=== PATIENT | male | born 1960 | race American Indian/Alaskan Native ===

== ENCOUNTER 2016-04-02 13:35 | Inpatient (IN) | payer BC ==
[2016-04-02] MEDS ORDERED: MILK OF MAGNESIA PO PRN (15:45)
[2016-04-02] MEDS ORDERED: TYLENOL PO PRN (15:45)
[2016-04-02] MEDS ORDERED: SENOKOT PO PRN (15:45)
[2016-04-02] MEDS ORDERED: ALUM-MAG HYDROX-SIMETH 200-200-20MG/5ML PO PRN (15:45)
[2016-04-02] MEDS ORDERED: D50W (25GM) IV PRN (16:15)
--- NOTE | 2016-04-02 17:20 | History and Physical Report ---
History of Present Illness Date: 04/02/16 Referring Facility: [facility] Date of admission: 04/02/16 13:35 Chief Complaint: Left posterior basal ganglia CVA History of present illness: POST ADMISSION PHYSICIAN EVALUATION ONSET DATE: 03/30/2016 IMPAIRMENT GROUP CODE: 01.2 ETIOLOGIC DIAGNOSIS: Left posterior basal ganglia CVA STATUS CHANGES SINCE PREADMISSION SCREENING: PAS has been reviewed. No acute changes noted in comparison to PAS; pt continues with right sided weakness and dysarthria. Pt remains an appropriate candidate for IPR course at this time. PREVIOUS FUNCTIONAL STATUS: Independent with ADLs, gait, transfers CURRENT FUNCTIONAL STATUS: Per PAS, S/U to modA for ADLs; min/CGA for bed mobility, transfers, gait up to 50 feet with HW; therapy evaluations will be initiated in the AM HPI 55 y.o. male who presented with acute onset of right sided weakness noted when attempting to get out of bed. CVA work-up revealed acute ischemia at left posterior basal ganglia. Pt continued with right sided weakness, dysarthria and facial droop; noted to have functional decline in self cares and mobility when evaluated by PT/OT. Pt is now admitted for aggressive therapies and ongoing medical management. Past History Past Medical History: diabetes, hypertension Past Surgical History: Other (right rotator cuff repair) Social history: Lives alone. denies: smoking, alcohol abuse Family history: diabetes, hypertension, stroke Medications and Allergies Allergies Allergy/AdvReac Type Severity Reaction Status Date / Time No Known Allergies Allergy Unverified 03/30/16 21:36 Home Medications Medication Instructions Recorded Confirmed Last Taken Type amLODIPine [Norvasc] 10 mg PO DAILY 03/31/16 03/31/16 Unknown History Aspirin [Aspirin TAB] 325 mg PO QDAY #30 tablet 04/02/16 Unknown Rx Insulin NPH/Regular [NovoLIN 70/30] 12 unit SQ BIDDIAB 30 Days 04/02/16 Unknown Rx Simvastatin [Zocor TAB] 40 mg PO QHS #30 tablet 04/02/16 Unknown Rx glipiZIDE [Glucotrol] 10 mg PO QDDIAB #30 tablet 04/02/16 Unknown Rx Active Meds: Active Medications Acetaminophen (Tylenol) 650 mg PO Q4H PRN PRN Reason: Pain MILD(1-3)/Fever >100.5/LÓPEZ Al Hydrox/Mg Hydrox/Simethicone (Alum-Mag Hydrox-Simeth [id number]/5ml) 30 ml PO Q4H PRN PRN Reason: Indigestion Amlodipine Besylate (Norvasc) 10 mg PO DAILY [facility] Aspirin (Aspirin) 325 mg PO QDAY DUY Dextrose (D50w (25gm)) 50 ml IV PRN PRN PRN Reason: Hypoglycemia Enoxaparin Sodium (Lovenox) 40 mg SUB-Q QDAY DUY Glipizide (Glucotrol) 10 mg PO QDDIAB [facility] Insulin Aspart (Novolog) 0 units SUB-Q ACHS DUY PRN Reason: Protocol Magnesium Hydroxide (Milk Of Magnesia) 30 ml PO Q4H PRN PRN Reason: Constipation Senna (Senokot) 8.6 mg PO Q12H PRN PRN Reason: Laxative Effect Simvastatin (Zocor) 20 mg PO QHS DUY Review of Systems All systems: negative Ears, nose, mouth and throat: no dysphagia, no headache Cardiovascular: no chest pain, no lightheadedness Respiratory: no cough, no shortness of breath Gastrointestinal: no nausea, no vomiting, no constipation Genitourinary Male: no dysuria Musculoskeletal: gait dysfunction Neurological: weakness (right extremities), other (dysarthria) Exam - Constitutional Vitals: Vital Signs - 12hr 04/02/16 04/02/16 14:55 15:45 Temperature 96.6 F L Pulse Rate [ 97 H Left Brachial] Pulse Rate [ 97 H Left Radial] Respiratory 20 Rate Blood Pressure 135/75 [Left Arm] O2 Sat by Pulse 96 Oximetry General appearance: no acute distress, other (sitting up on edge of bed eating dinner; no coughing noted; children present) - EENT Eyes: EOM intact ENT: hearing intact - Neck Neck: supple, normal ROM - Respiratory Respiratory effort: normal Respiratory: bilateral: CTA - Cardiovascular Rhythm: regular Heart Sounds: Present: S1 & S2 - Extremities Extremities: No edema - Gastrointestinal General gastrointestinal: Present: soft, non-tender, non-distended, normal bowel sounds - Integumentary Integumentary: Present: clear - Musculoskeletal Musculoskeletal: right sided weakness - Neurologic Neurologic: other (+facial droop; +dysarthria; sensation grossly intact) - Psychiatric Psychiatric: appropriate mood/affect, intact judgment & insight, memory intact, cooperative - Labs Labs: Laboratory Results - last 72 hr 04/02/16 16:41 POC Glucose 175 H Assessment and Plan Assessment and plan: 55 y.o. male s/p left posterior basal ganglia infarct, gait dysfunction and dysarthria. The patient is medically stable, however, requires ongoing medical management. Pt is appropriate for inpatient rehabilitation admission and is thought to be able to tolerate at least 3 hours of therapy a day, 5 days a week including 1 hour of physical therapy, 1 hour of occupational therapy, and 1 hour of speech therapy. Patient is able to understand and follow basic directions and has attainable rehab goals. Potential barriers/complications include extension/recurrent CVA, falls, seizure, DVT, PE, depression, parasthesias, aspiration, syncope, hypoglycemia, uncontrolled DM/HTN. Plan 1. Rehabilitation- Pt will undergo multidisciplinary/integrative rehab PT/OT/ IT RECRUITER, Nursing. Areas to be addressed include, but are not limited to PT for mobility, strengthening, transfer training, ROM, endurance, stairs, balance; OT for ADLs, household tasks, adaptive equipment; IT RECRUITER for dysarthria; Nursing for carryover of therapies, pain control, CVA education, skin integrity, medication management, bowel/bladder management; Nutrition as needed; automotive services manager for discharge planning and equipment needs. Potential interventions include appropriate assistive device or adaptive equipment. Expected overall level of functional improvement by discharge is Jason for ADLs, gait, transfers. Pt will tentatively be discharged home with outpatient PT/OT/IT RECRUITER. Estimated length of stay is 10-14 days. 2. s/p CVA- continue ASA, statin; PT/OT/IT RECRUITER to address gait dysfunction, decreased balance, dysarthria, decline in functional independence 3. DM- resume glipizide, SSI, ADA diet; follow blood sugars closely; HgA1c 11.8 on admission 4. HTN- continue Norvasc; follow and add additional agent if needed 5. DVT px- lovenox - Patient Problems (1) Left-sided cerebrovascular accident (CVA) Current Visit: Yes Status: Acute (2) Dysarthria due to cerebrovascular accident (CVA) Current Visit: Yes Status: Acute (3) Hemiparesis affecting right side as late effect of cerebrovascular accident Current Visit: Yes Status: Acute (4) Diabetes Current Visit: Yes Status: Chronic Qualifiers: Diabetes mellitus type: type 2 Diabetes mellitus complication status: with hyperglycemia Diabetes mellitus jail insulin use: without jail use Qualified Code(s): E11.65 - Type 2 diabetes mellitus with hyperglycemia (5) HTN (hypertension) Current Visit: Yes Status: Chronic Qualifiers: Hypertension type: essential hypertension Qualified Code(s): I10 - Essential (primary) hypertension
[2016-04-02] MEDS: NOVOLOG SUB-Q SCH ×2 (17:26→22:52)
[2016-04-02] MEDS ORDERED: ZOCOR PO SCH (21:00)
[2016-04-02] MEDS: ZOCOR PO SCH (22:52)
[2016-04-03] MEDS: GLUCOTROL PO SCH (08:00)
[2016-04-03] MEDS ORDERED: GLUCOTROL PO SCH (08:00)
[2016-04-03] MEDS: LOVENOX SUB-Q SCH (08:00)
[2016-04-03] MEDS: NOVOLOG SUB-Q SCH ×4 (08:40→22:30)
[2016-04-03] MEDS: NORVASC PO SCH (10:00)
--- NOTE | 2016-04-03 14:28 | Progress Note ---
Assessment and Plan 55 y.o. male s/p left posterior basal ganglia infarct, gait dysfunction and dysarthria - s/p CVA- ASA, statin - gait dysfunction secondary to CVA- continue to address with PT and OT - dysarthria secondary to CVA- continue GASTROENTEROLOGY TECHNICIAN - DM- restarted on glipizide, SSI, ADA diet; continue to follow blood sugars closely; will likely need to restart 70/30 if remains elevated - HTN- Norvasc - DVT px- lovenox - Patient Problems (1) Left-sided cerebrovascular accident (CVA) Current Visit: Yes Status: Acute (2) Hemiparesis affecting right side as late effect of cerebrovascular accident Current Visit: Yes Status: Acute (3) Dysarthria due to cerebrovascular accident (CVA) Current Visit: Yes Status: Acute (4) HTN (hypertension) Current Visit: Yes Status: Chronic Qualifiers: Hypertension type: essential hypertension Qualified Code(s): I10 - Essential (primary) hypertension (5) Diabetes Current Visit: Yes Status: Chronic Qualifiers: Diabetes mellitus type: type 2 Diabetes mellitus complication status: with hyperglycemia Diabetes mellitus complication detail: D Diabetic retinopathy severity: D Proliferative retinopathy type: P Diabetes mellitus macular edema: D Diabetes mellitus meterman insulin use: without alf use Laterality: L Chronic kidney disease stage: C Qualified Code(s): E11.65 - Type 2 diabetes mellitus with hyperglycemia (6) Abnormality of gait following cerebrovascular accident (CVA) Current Visit: Yes Status: Acute Subjective Date of service: 04/03/16 Principal diagnosis: left posterior basal ganglia infarct Interval history: Pt seen in room this AM, F/U IPR course, s/p left posterior basal ganglia infarct. Pt is without any complaints on today; able to participate well with therapy evaluations Objective - Constitutional General appearance: Present: no acute distress - EENT Eyes: EOM intact ENT: hearing intact - Neck Neck: supple, normal ROM - Respiratory Respiratory effort: normal Respiratory: bilateral: CTA - Cardiovascular Rhythm: regular Heart Sounds: Present: S1 & S2 Extremities: No edema - Gastrointestinal General gastrointestinal: Present: soft, non-tender, non-distended, normal bowel sounds - Integumentary Integumentary: clear - Musculoskeletal Musculoskeletal: right sided weakness - Neurologic Neurologic: other (facial droop and dysarthria ongoing) - Psychiatric Psychiatric: appropriate mood/affect, intact judgment & insight, memory intact, cooperative - Allied health notes Allied health notes reviewed: OT (Jason to Pawan) - Labs Labs: Abnormal lab results 04/02/16 04/02/16 04/03/16 Range/Units 16:41 22:11 06:35 POC Glucose 175 H 312 H 244 H (70-105) 04/03/16 Range/Units 12:07 POC Glucose 240 H (70-105)
[2016-04-03 16:06] LABS: Basophils % (Auto) 0.6 % (0.0-1.8); Hematocrit 41.2 % (35.5-45.6); Hemoglobin 13.6 gm/dl (11.8-15.2); Mean Corpuscular HGB Conc 33 % (32-34); Mean Corpuscular Hemoglobin 29 pg (28-32); Mean Corpuscular Volume 87 fl (84-94); Platelet Count 187 K/mm3 (140-440); Red Blood Count 4.75 M/mm3 (3.65-5.03); Red Cell Distribution Width 13.3 % (13.2-15.2); White Blood Count 4.1 K/mm3 (4.5-11.0)
[2016-04-03] MEDS: ASPIRIN PO SCH (16:47)
[2016-04-03] MEDS: ZOCOR PO SCH (22:42)
[2016-04-03 23:26] LABS: Anion Gap 17 mmol/L; BUN/Creatinine Ratio 17.77; Blood Urea Nitrogen 16 mg/dL (9-20); Calcium 8.6 mg/dL (8.4-10.2); Carbon Dioxide 25 mmol/L (22-30); Chloride 100.1 mmol/L (98-107); Glucose 242 mg/dL (75-100); Potassium 3.9 mmol/L (3.6-5.0); Sodium 138 mmol/L (137-145)
[2016-04-03 23:27] LABS: Alanine Aminotransferase 26 units/L (7-56); Bilirubin,Total 0.5 mg/dL (0.1-1.2); Total Protein 6.9 g/dL (6.3-8.2)
[2016-04-03 23:28] LABS: Alkaline Phosphatase 61 units/L (35-129)
[2016-04-03 23:46] LABS: Albumin/Globulin Ratio 1.4 %
[2016-04-04] MEDS: ASPIRIN PO SCH (08:13)
[2016-04-04] MEDS: LOVENOX SUB-Q SCH (08:13)
[2016-04-04] MEDS: GLUCOTROL PO SCH (08:14)
[2016-04-04] MEDS: NORVASC PO SCH ×2 (08:14→10:00)
[2016-04-04] MEDS: NOVOLOG SUB-Q SCH ×4 (08:14→22:28)
--- NOTE | 2016-04-04 15:08 | IRU Plan of Care ---
Interdisciplinary Plan of Care - IP IRU INTERDISCIPLINARY PLAN: [facility] Inpatient Rehab Unit Plan of Care IRU Interdisciplinary Care Plan Start: 04/02/16 14: 55 Freq: Admission then PRN Status: Active Document 04/04/16 10:10 DB (Rec: 04/04/16 10:18 DB [id number]) Interdisciplinary Problem List Interdisciplinary Problem List Interdisciplinary Problem List Impaired Bathing/Grooming Query Text:Answers will Trigger Problems Impaired Dressing and Outcomes on Worklist. Impaired Mobility Impaired Transfers Impaired Toileting Impaired Expression Pain Management Knowledge Deficits Impaired Safety Medications Education Diabetes Education IRU Interdisciplinary Care Plan Therapy Services Therapy Services Will Include: Physical Therapy Query Text:Patient will be seen for a Occupational Therapy minimum of 3 hours of daily therapy 5 Speech Therapy out of 7 days a week. Therapy intensity may be adjusted within a 7 consecutive day period to effectively serve the individual needs of the patient. Treatment Frequency/Intensity/Duration Treatment Frequency 5 days per week Treatment Intensity 1 hour per discipline (PT/OT/ SIGNAL MECHANIC) daily Treatment Duration 10-14 days Problem Area: Eating/Swallowing Eating/Swallowing Outcomes Eating/Swallowing Interventions Problem Area: Bathing/Grooming Bathing/Grooming Outcomes Improve [place] w/ Bathing Bathing/Grooming Interventions ADL Training Use of Assistive Devices Therapeutic Exercise Therapeutic Activity Neuromuscular Re-Education Balance Work Activity Tolerance Work Patient/Caregiver Education Problem Area: Dressing Dressing Outcomes Improve [place] w/ UB Dressing Improve [place] w/ LB Dressing Dressing Interventions ADL Training Use of Assistive Devices Neuromuscular Re-Education Therapeutic Exercise Balance Work Patient/Caregiver Education Problem Area: Mobility Mobility Outcomes Improve [place] w/ Bed Mobility Improve [place] w/ Ambulation Improve [place] w/ Stairs /Curb Mobility Interventions Therapeutic Exercise Neuromuscular Re-Ed. Activity Tolerance Work Use of Assistive Devices Patient/Caregiver Education Gait Training Problem Area: Transfers Transfers Outcomes Improve [place] w/ Bed Transfers Improve [place] w/ Toilet Transfers Improve [place] w/ Tub/ Shower Transfers Improve [place] w/ Car Transfers Transfers Interventions Transfer Training Therapeutic Exercise Neuromuscular Re-Education Activity Tolerance Work Use of Assistive Devices Patient/Caregiver Education Problem Area: Bowel/Bladder Managment Bowel/Bladder Outcomes Bowel/Bladder Interventions Problem Area: Toileting Toileting Outcomes Improve [place] w/ Toileting Toileting Interventions ADL Training Balance Work Use of Assistive Devices Patient/Caregiver Education Problem Area: Nutrition Nutrition Outcomes Understand and Comply w/ Diet Nutrition Interventions Patient/Caregiver Education Problem Area: Comprehension Comprehension Outcomes Comprehension Interventions Problem Area: Expression Expression Outcomes Improve Intelligibility Expression Interventions Patient/Caregiver Education Problem Area: Problem Solving Problem Solving Outcomes Problem Solving Interventions Problem Area: Memory Memory Outcomes Use Memory Aids Memory Interventions Cognitive Training Patient/Caregiver Education Problem Area: Pain Management Pain Management Outcomes Demonstrate/Verbalize Pain Strategies Pain Management Interventions Medication Management Patient/Caregiver Education Problem Area: Knowledge Deficits Knowledge Deficits Outcomes Demonstrate Ability to Manage Blood Glucose Verbalize Understanding of S/S of Stroke Knowledge Deficits Interventions Medication Use Education Disease Management Education Safety Education Problem Area: Skin/Tissue Integrity Skin/Tissue Integrity Outcomes Skin/Tissue Integrity Interventions Problem Area: Social Interaction Social Interaction Outcomes Social Interaction Interventions Problem Area: Adjustment to Disability Adjustment to Disability Outcomes Adjustment to Disability Interventions Problem Area: Discharge Concerns Discharge Concerns Outcomes Discharge Home w/ Necessary Equipment Have Home Health/Outpatient Services Discharge Concerns Interventions Discharge Planning Family/Caregiver Conference Family/Caregiver Training Problem Area: Community Reintegration Community Reintegration Outcomes Demonstrate Understanding of Community Resources Community Reintegration Interventions Provide Community Resources Problem Area: Home Management Home Management Outcomes Improve [place] w/ Home Management Home Management Interventions Meal Preparation Clothing Care Activity Tolerance Work House Cleaning Patient/Caregiver Education Problem Area: Safety Safety Outcomes Provide Safe Environment Perform Selfcare Safely Demonstrate Good Safety w/ Transfers/Mobility Safety Interventions Identify Fall Risk [place] Pt. to Environment Reduce Environmental Hazards Problem Area: Medication Education Medication Education Outcomes Patient/Caregiver will Verbalize Understanding of Medications Medication Education Interventions Explain Administration/Side Effects/Interactions Problem Area: Diabetes Education Diabetes Education Outcomes Demonstrate Knowledge of Resources Availlable in Diabetic Ed. Folder Diabetes Education Interventions Give Pt. Diabetes Education Folder Discuss Pathophysiology of Diabetes Problem Area: Oxygenation Oxygenation Outcomes Oxygenation Interventions Problem Area: Cardiovascular Cardiovascular Outcomes Cardiovascular Interventions Physician Only Medical Prognosis and Rehabilitation Patient demonstrates good Potential (Completed by Physician) rehab potential. Medical Prognosis: Good This plan of care has been developed based on the findings from the pre- admission assessment, post admission physician evaluation, information gathered from the assessments from all therapy disciplines and other pertinent clinicians. The plan of care has been reviewed and discussed in collaboration with the interdisciplinary team. The plan of care will be reviewed and updated at least weekly. 55 y.o. male s/p left posterior basal ganglia infarct, gait dysfunction and dysarthria. The patient remains at risk for extension/recurrent CVA, falls, seizure, DVT, PE, depression, parasthesias, aspiration, syncope, hypoglycemia, uncontrolled DM/HTN. Blood pressure remains with good control; will potentially need to be restarted on scheduled insulin. Pt continues with right sided weakness and dysarthria; tolerating therapies well. Pt remains an appropriate candidate for IRU course.
--- NOTE | 2016-04-04 15:12 | Progress Note ---
Assessment and Plan 55 y.o. left handed male s/p left posterior basal ganglia infarct, gait dysfunction and dysarthria - s/p CVA- ASA, statin - gait dysfunction secondary to CVA- ambulating with HW up to 150 feet - DM- glipizide, SSI, ADA diet - HTN- controlled on Norvasc - DVT px- lovenox - team conference held on today- S/U for eating and grooming; Pawan for bathing, dressing, bed mobility; min-modA for transfers; Pawan for stairs and gait up to 150 feet; Pawan for verbal expression. Tentative d/c date is 04/16/2016 - Patient Problems (1) Left-sided cerebrovascular accident (CVA) Current Visit: Yes Status: Acute (2) Hemiparesis affecting right side as late effect of cerebrovascular accident Current Visit: Yes Status: Acute (3) Dysarthria due to cerebrovascular accident (CVA) Current Visit: Yes Status: Acute (4) HTN (hypertension) Current Visit: Yes Status: Chronic Qualifiers: Hypertension type: essential hypertension Qualified Code(s): I10 - Essential (primary) hypertension (5) Diabetes Current Visit: Yes Status: Chronic Qualifiers: Diabetes mellitus type: type 2 Diabetes mellitus complication status: with hyperglycemia Diabetes mellitus complication detail: D Diabetic retinopathy severity: D Proliferative retinopathy type: P Diabetes mellitus macular edema: D Diabetes mellitus nursing home insulin use: without technology lab teacher use Laterality: L Chronic kidney disease stage: C Qualified Code(s): E11.65 - Type 2 diabetes mellitus with hyperglycemia (6) Abnormality of gait following cerebrovascular accident (CVA) Current Visit: Yes Status: Acute Subjective Date of service: 04/04/16 Principal diagnosis: left posterior basal ganglia infarct Interval history: Pt seen in dining room this afternoon, F/U IPR course, s/p left posterior basal ganglia infarct. No acute events noted overnight; pt updated on recommended discharge date Objective - Constitutional Vitals: Vital Signs - 12hr 04/04/16 07:30 Temperature 98.1 F Pulse Rate [ 80 Left Brachial] Respiratory 20 Rate Blood Pressure 140/72 [Left Arm] O2 Sat by Pulse 96 Oximetry General appearance: Present: no acute distress - EENT Eyes: EOM intact ENT: hearing intact - Neck Neck: supple, normal ROM - Respiratory Respiratory effort: normal Extremities: No edema - Gastrointestinal General gastrointestinal: Present: non-tender, non-distended - Integumentary Integumentary: clear - Musculoskeletal Musculoskeletal: right sided weakness - Neurologic Neurologic: other (facial droop and dysarthria unchanged) - Psychiatric Psychiatric: appropriate mood/affect, intact judgment & insight, memory intact, cooperative - Labs CBC & Chem 7: 04/03/16 06:49 04/03/16 Unknown Labs: Abnormal lab results 04/03/16 04/03/16 04/03/16 Range/Units 06:49 16:59 22:41 WBC 4.1 L (4.5-11.0) K/mm3 Lymph % (Auto) 42.8 H (13.4-35.0) % [place] % (Auto) 13.5 H (0.0-7.3) % Seg Neutrophils # 1.6 L (1.8-7.7) K/mm3 Glucose (75-100) mg/dL POC Glucose 142 H 245 H (70-105) 04/03/16 04/04/16 04/04/16 Range/Units Unknown 06:13 12:01 WBC (4.5-11.0) K/mm3 Lymph % (Auto) (13.4-35.0) % [place] % (Auto) (0.0-7.3) % Seg Neutrophils # (1.8-7.7) K/mm3 Glucose 242 H (75-100) mg/dL POC Glucose 245 H 180 H (70-105)
[2016-04-04] MEDS: ZOCOR PO SCH (22:00)
[2016-04-05] MEDS: LOVENOX SUB-Q SCH (08:42)
[2016-04-05] MEDS: GLUCOTROL PO SCH (08:43)
[2016-04-05] MEDS: NORVASC PO SCH ×2 (08:43→10:00)
[2016-04-05] MEDS: ASPIRIN PO SCH (08:43)
[2016-04-05] MEDS: NOVOLOG SUB-Q SCH ×4 (08:44→21:37)
--- NOTE | 2016-04-05 13:47 | Progress Note ---
Assessment and Plan 55 y.o. left handed male s/p left posterior basal ganglia infarct, gait dysfunction and dysarthria - s/p CVA- ASA, statin - gait dysfunction secondary to CVA- large based quad cane utilized on today; progressing well - DM- glipizide, SSI, ADA diet; will ask IM to see for better control - HTN- controlled on Norvasc - DVT px- lovenox - Patient Problems (1) Left-sided cerebrovascular accident (CVA) Current Visit: Yes Status: Acute (2) Hemiparesis affecting right side as late effect of cerebrovascular accident Current Visit: Yes Status: Acute (3) Dysarthria due to cerebrovascular accident (CVA) Current Visit: Yes Status: Acute (4) HTN (hypertension) Current Visit: Yes Status: Chronic Qualifiers: Hypertension type: essential hypertension Qualified Code(s): I10 - Essential (primary) hypertension (5) Diabetes Current Visit: Yes Status: Chronic Qualifiers: Diabetes mellitus type: type 2 Diabetes mellitus complication status: with hyperglycemia Diabetes mellitus complication detail: D Diabetic retinopathy severity: D Proliferative retinopathy type: P Diabetes mellitus macular edema: D Diabetes mellitus terminal operator insulin use: without terminal operator use Laterality: L Chronic kidney disease stage: C Qualified Code(s): E11.65 - Type 2 diabetes mellitus with hyperglycemia (6) Abnormality of gait following cerebrovascular accident (CVA) Current Visit: Yes Status: Acute Subjective Date of service: 04/05/16 Principal diagnosis: left posterior basal ganglia infarct Interval history: Pt seen in gym this AM, F/U IPR course, s/p left posterior basal ganglia infarct. Discussed home insulin regimen; states he was taking glipizide and sliding scale at home prior to admission; however, states this was not keeping his blood sugar under control. Objective - Constitutional Vitals: Vital Signs - 12hr 04/05/16 08:00 Temperature 98.4 F Pulse Rate [ 83 Left Brachial] Respiratory 20 Rate Blood Pressure 140/76 [Left Arm] O2 Sat by Pulse 97 Oximetry General appearance: Present: no acute distress, other (sitting up in WC) - EENT Eyes: EOM intact ENT: hearing intact - Neck Neck: supple, normal ROM - Respiratory Respiratory effort: normal Extremities: No edema - Musculoskeletal Musculoskeletal: right sided weakness - Psychiatric Psychiatric: appropriate mood/affect, intact judgment & insight, memory intact, cooperative - Allied health notes Allied health notes reviewed: PT (supervision with HW, CGA with [facility] based quad cane) - Labs CBC & Chem 7: 04/03/16 06:49 04/03/16 Unknown Labs: Abnormal lab results 04/04/16 04/04/16 04/05/16 Range/Units 17:11 21:20 06:25 POC Glucose 61 L 259 H 232 H (70-105) 04/05/16 Range/Units 12:06 POC Glucose 205 H (70-105)
[2016-04-05] MEDS: ZOCOR PO SCH (21:36)
--- NOTE | 2016-04-06 08:53 | Progress Note ---
Assessment and Plan 55 y.o. left handed male s/p left posterior basal ganglia infarct, gait dysfunction and dysarthria - s/p CVA- ASA, statin - gait dysfunction secondary to CVA- continue aggressive gait training - DM- glipizide, SSI, ADA diet; IM consult pending - HTN- stable - DVT px- lovenox - Patient Problems (1) Left-sided cerebrovascular accident (CVA) Current Visit: Yes Status: Acute (2) Hemiparesis affecting right side as late effect of cerebrovascular accident Current Visit: Yes Status: Acute (3) Dysarthria due to cerebrovascular accident (CVA) Current Visit: Yes Status: Acute (4) HTN (hypertension) Current Visit: Yes Status: Chronic Qualifiers: Hypertension type: essential hypertension Qualified Code(s): I10 - Essential (primary) hypertension (5) Diabetes Current Visit: Yes Status: Chronic Qualifiers: Diabetes mellitus type: type 2 Diabetes mellitus complication status: with hyperglycemia Diabetes mellitus complication detail: D Diabetic retinopathy severity: D Proliferative retinopathy type: P Diabetes mellitus macular edema: D Diabetes mellitus ferry terminal agent insulin use: without half-way use Laterality: L Chronic kidney disease stage: C Qualified Code(s): E11.65 - Type 2 diabetes mellitus with hyperglycemia (6) Abnormality of gait following cerebrovascular accident (CVA) Current Visit: Yes Status: Acute Subjective Date of service: 04/06/16 Principal diagnosis: left posterior basal ganglia infarct Interval history: Pt seen in [facility] this AM, F/U IPR course, s/p left posterior basal ganglia infarct. Improved dysarthria noted with tasks being completed in session Objective - Constitutional General appearance: Present: no acute distress - EENT Eyes: EOM intact ENT: hearing intact - Neck Neck: supple, normal ROM - Respiratory Respiratory effort: normal - Integumentary Integumentary: clear - Musculoskeletal Musculoskeletal: right sided weakness - Psychiatric Psychiatric: appropriate mood/affect, cooperative - Allied health notes Allied health notes reviewed: nursing (Jason to supervision with ADLs this AM) - Labs CBC & Chem 7: 04/03/16 06:49 04/03/16 Unknown Labs: Abnormal lab results 04/05/16 04/05/16 04/05/16 Range/Units 12:06 16:50 21:09 POC Glucose 205 H 111 H 208 H (70-105) 04/06/16 Range/Units 06:22 POC Glucose 188 H (70-105)
[2016-04-06] MEDS: LOVENOX SUB-Q SCH (09:07)
[2016-04-06] MEDS: GLUCOTROL PO SCH (09:07)
[2016-04-06] MEDS: ASPIRIN PO SCH (09:07)
[2016-04-06] MEDS: NORVASC PO SCH (09:07)
[2016-04-06] MEDS: NOVOLOG SUB-Q SCH ×3 (09:48→17:03)
--- NOTE | 2016-04-06 19:37 | Consultation ---
History of Present Illness - Reason for Consult Consult date: 04/06/16 Uncontrolled diabetes mellitus - History of Present Illness Patient is a 55 year-old man with a history of type 2 diabetes mellitus, hypertension and dyslipidemia who is located at [facility] inpatient rehab since for acute ischemic stroke. Hospitalist team was consulted tonight for persistent mildly severe hyperglycemia despite being on his home glipizide dose. He's been on glipizide for 2 years. Patient still can not walk but his right hand strength is improving since he has been in rehabilitation. Denies any chest pain, shortness breath, nausea vomiting. Past History Past Medical History: diabetes, hypertension Past Surgical History: Other (right rotator cuff repair) Social history: Lives alone. denies: smoking, alcohol abuse Family history: diabetes, hypertension, stroke Medications and Allergies Allergies Allergy/AdvReac Type Severity Reaction Status Date / Time No Known Allergies Allergy Unverified 03/30/16 21:36 Home Medications Medication Instructions Recorded Confirmed Last Taken Type amLODIPine [Norvasc] 10 mg PO DAILY 03/31/16 04/02/16 04/02/16 09:00 History Aspirin [Aspirin TAB] 325 mg PO QDAY #30 tablet 04/02/16 04/02/16 04/01/16 09: 00 Rx Insulin NPH/Regular [NovoLIN 70/30] 12 unit SQ BIDDIAB 30 Days 04/02/16 Unknown Rx Simvastatin [Zocor TAB] 40 mg PO QHS #30 tablet 04/02/16 04/02/16 04/01/16 22: 00 Rx glipiZIDE [Glucotrol] 10 mg PO QDDIAB #30 tablet 04/02/16 04/02/16 04/02/16 09: 00 Rx Active Meds: Active Medications Acetaminophen (Tylenol) 650 mg PO Q4H PRN PRN Reason: Pain MILD(1-3)/Fever >100.5/LÓPEZ Al Hydrox/Mg Hydrox/Simethicone (Alum-Mag Hydrox-Simeth [id number]/5ml) 30 ml PO Q4H PRN PRN Reason: Indigestion Amlodipine Besylate (Norvasc) 10 mg PO DAILY [facility] Last Admin: 04/06/16 09:07 Dose: 10 mg Aspirin (Aspirin) 325 mg PO QDAY [facility] Last Admin: 04/06/16 09:07 Dose: 325 mg Dextrose (D50w (25gm)) 50 ml IV PRN PRN PRN Reason: Hypoglycemia Enoxaparin Sodium (Lovenox) 40 mg SUB-Q QDAY [facility] Last Admin: 04/06/16 09:07 Dose: 40 mg Insulin Aspart (Novolog) 0 units SUB-Q ACHS DUY PRN Reason: Protocol Last Admin: 04/06/16 17:03 Dose: 3 units Insulin Detemir (Levemir) 5 units SUB-Q QHS [facility] Magnesium Hydroxide (Milk Of Magnesia) 30 ml PO Q4H PRN PRN Reason: Constipation Senna (Senokot) 8.6 mg PO Q12H PRN PRN Reason: Laxative Effect Simvastatin (Zocor) 20 mg PO QHS [facility] Last Admin: 04/05/16 21:36 Dose: 20 mg Review of Systems All systems: negative (as HPI and all other ROS reviewed and negative.) Exam - Physical Exam Narrative exam: GEN: WDWN, NAD, AWAKE, ALERT, ORIENTATED 3 HEENT: NCAT, PERRL, EOMI, OP CLEAR NECK: SUPPLE, NO THYROMEGALY, NO JVD, NO LAD CVS: RRR, NORMAL S1S2 LUNGS/CHEST: CTA B, NORMAL CHEST EXPANSION B, GOOD AIR ENTRY B ABD: SOFT NTND, GBS, NO REBOUND OR GUARDING EXT/SKIN: NO SIGNIFICANT EDEMA OR RASH MSK: FROM X 3 EXTREMITIES, LROM right side NEURO: CN 2-12 GROSSLY INTACT, NO NEW FOCAL DEFICITS, right sided hemiparesis PSY: CALM - Constitutional Vitals: Temp Pulse Resp BP Pulse Ox 97.8 F 91 H 20 115/75 99 04/06/16 16:35 04/06/16 16:35 04/06/16 16:35 04/06/16 16:35 04/05/16 20:31 Results - Labs CBC & Chem 7: 04/03/16 06:49 04/03/16 Unknown Labs: Abnormal lab results 04/05/16 04/06/16 04/06/16 Range/Units 21:09 06:22 11:17 POC Glucose 208 H 188 H 260 H (70-105) 04/06/16 Range/Units 16:38 POC Glucose 256 H (70-105) Assessment and Plan Patient is a 55 year-old man with a history of type 2 diabetes mellitus, hypertension and dyslipidemia who is located at [facility] inpatient rehab since for acute ischemic stroke. Hospitalist team was consulted tonight for persistent mildly severe hyperglycemia despite being on his home glipizide dose. He's been on glipizide for 2 years. Patient still can not walk but his right hand strength is improving since he has been in rehabilitation. Denies any chest pain, shortness breath, nausea vomiting. 1. Uncontrolled type 2 DM: stop glipizide and start sq levemir 5unit qhs with ssi. Tomorrow we can start basal/mealtime insulin depending on how the 5units of levemir works 2. Acute cva with infarct: continue rehab, asa and statin 3. Htn, stable 4. dlp: statin Thank you for allowing the Hospitalist team to be apart of your patient's care, we will follow up
[2016-04-06] MEDS ORDERED: LEVEMIR SUB-Q SCH (21:00)
[2016-04-06] MEDS: ZOCOR PO SCH (22:57)
[2016-04-07] MEDS: NOVOLOG SUB-Q SCH ×5 (01:14→21:48)
[2016-04-07] MEDS: LOVENOX SUB-Q SCH (09:26)
[2016-04-07] MEDS: ASPIRIN PO SCH (09:27)
[2016-04-07] MEDS: NORVASC PO SCH (09:31)
--- NOTE | 2016-04-07 15:16 | Progress Note ---
Assessment and Plan Assessment and plan: 1. Uncontrolled diabetes - oral anti-diabetics discontinued and started on long -acting insulin along with SSI based on Accu-Cheks. BS still elevated. Will increase Levemir to 8 units daily at bedtime; continue to monitor and make further adjustments as necessary 2. Hypertension - BP controlled on Amlodipine 3. Hyperlipidemia - on statin 4. CVA - with residual dysarthria and right-sided weakness; on aspirin and statin; PT/OT/ST in inpatient rehabilitation 5. DVT prophylaxis - Lovenox History Interval history: no specific complaints Hospitalist Physical - Constitutional Vitals: Temp Pulse Resp BP Pulse Ox 97.3 F L 79 20 128/81 100 04/07/16 08:00 04/07/16 09:31 04/07/16 02:00 04/07/16 09:31 04/07/16 08:00 General appearance: Present: no acute distress, well-nourished - Neck Neck: Present: supple, normal ROM. Absent: masses or JVD - Respiratory Respiratory effort: normal Respiratory: bilateral: CTA, negative: rhonchi, wheezing - Cardiovascular Rhythm: regular Heart Sounds: Present: S1 & S2. Absent: systolic murmur - Extremities Extremities: no ischemia - Abdominal General gastrointestinal: soft, non-tender, non-distended, normal bowel sounds - Neurologic Neurologic: other (right-sided weakness) Results - Labs CBC & Chem 7: 04/03/16 06:49 04/03/16 Unknown Labs: Laboratory Last Values WBC 4.1 K/mm3 (4.5-11.0) L 04/03/16 06:49 RBC 4.75 M/mm3 (3.65-5.03) 04/03/16 06:49 Hgb 13.6 gm/dl (11.8-15.2) 04/03/16 06:49 Hct 41.2 % (35.5-45.6) 04/03/16 06:49 MCV 87 fl (84-94) 04/03/16 06:49 MCH 29 pg (28-32) 04/03/16 06:49 MCHC 33 % (32-34) 04/03/16 06:49 RDW 13.3 % (13.2-15.2) 04/03/16 06:49 Plt Count 187 K/mm3 (140-440) 04/03/16 06:49 Lymph % (Auto) 42.8 % (13.4-35.0) H 04/03/16 06:49 [place] % (Auto) 13.5 % (0.0-7.3) H 04/03/16 06:49 Eos % (Auto) 3.0 % (0.0-4.3) 04/03/16 06:49 Baso % (Auto) 0.6 % (0.0-1.8) 04/03/16 06:49 Lymph # 1.7 K/mm3 (1.2-5.4) 04/03/16 06:49 [place] # 0.5 K/mm3 (0.0-0.8) 04/03/16 06:49 Eos # 0.1 K/mm3 (0.0-0.4) 04/03/16 06:49 Baso # 0.0 K/mm3 (0.0-0.1) 04/03/16 06:49 Seg Neutrophils % 40.1 % (40.0-70.0) 04/03/16 06:49 Seg Neutrophils # 1.6 K/mm3 (1.8-7.7) L 04/03/16 06:49 Sodium 138 mmol/L (137-145) 04/03/16 Unknown Potassium 3.9 mmol/L (3.6-5.0) 04/03/16 Unknown Chloride 100.1 mmol/L (98-107) 04/03/16 Unknown Carbon Dioxide 25 mmol/L (22-30) 04/03/16 Unknown Anion Gap 17 mmol/L 04/03/16 Unknown BUN 16 mg/dL (9-20) 04/03/16 Unknown Creatinine 0.9 mg/dL (0.8-1.5) 04/03/16 Unknown Estimated GFR > 60 ml/min 04/03/16 Unknown BUN/Creatinine Ratio 17.77 % 04/03/16 Unknown Glucose 242 mg/dL (75-100) H 04/03/16 Unknown POC Glucose 202 (70-105) H 04/07/16 11:42 Calcium 8.6 mg/dL (8.4-10.2) 04/03/16 Unknown Total Bilirubin 0.5 mg/dL (0.1-1.2) 04/03/16 Unknown AST 21 units/L (5-40) 04/03/16 Unknown ALT 26 units/L (7-56) 04/03/16 Unknown Alkaline Phosphatase 61 units/L (35-129) 04/03/16 Unknown Total Protein 6.9 g/dL (6.3-8.2) 04/03/16 Unknown Albumin 4.0 g/dL (3.9-5) 04/03/16 Unknown Albumin/Globulin Ratio 1.4 % 04/03/16 Unknown
[2016-04-07] MEDS ORDERED: LEVEMIR SUB-Q SCH (21:00)
[2016-04-07] MEDS: ZOCOR PO SCH (21:47)
[2016-04-08] MEDS: ASPIRIN PO SCH (08:08)
[2016-04-08] MEDS: LOVENOX SUB-Q SCH (08:08)
[2016-04-08] MEDS: NOVOLOG SUB-Q SCH ×4 (08:09→22:06)
[2016-04-08] MEDS: NORVASC PO SCH (09:00)
--- NOTE | 2016-04-08 17:38 | Progress Note ---
Assessment and Plan Assessment and plan: 1. Uncontrolled diabetes - oral anti-diabetics discontinued and started on long -acting insulin along with SSI based on Accu-Cheks. BS still elevated. Will further increase Levemir to 10 units daily at bedtime; continue to monitor and make adjustments as necessary 2. Hypertension - BP controlled on Amlodipine 3. Hyperlipidemia - on statin 4. CVA - with residual dysarthria and right-sided weakness; on aspirin and statin; PT/OT/ST in inpatient rehabilitation 5. DVT prophylaxis - Lovenox History Interval history: no specific complaints Hospitalist Physical - Constitutional Vitals: Temp Pulse Resp BP Pulse Ox 97.5 F L 72 20 105/68 98 04/08/16 07:30 04/08/16 07:30 04/08/16 07:30 04/08/16 07:30 04/08/16 07:30 General appearance: Present: no acute distress, well-nourished - EENT Eyes: Present: PERRL, EOM intact - Neck Neck: Present: supple, normal ROM. Absent: masses or JVD - Respiratory Respiratory effort: normal Respiratory: bilateral: CTA, negative: rales, rhonchi, wheezing - Cardiovascular Rhythm: regular Heart Sounds: Present: S1 & S2. Absent: systolic murmur - Extremities Extremities: no ischemia - Abdominal General gastrointestinal: soft, non-tender, non-distended, normal bowel sounds - Neurologic Neurologic: other (right sided weakness) Results - Labs CBC & Chem 7: 04/03/16 06:49 04/03/16 Unknown Labs: Laboratory Last Values WBC 4.1 K/mm3 (4.5-11.0) L 04/03/16 06:49 RBC 4.75 M/mm3 (3.65-5.03) 04/03/16 06:49 Hgb 13.6 gm/dl (11.8-15.2) 04/03/16 06:49 Hct 41.2 % (35.5-45.6) 04/03/16 06:49 MCV 87 fl (84-94) 04/03/16 06:49 MCH 29 pg (28-32) 04/03/16 06:49 MCHC 33 % (32-34) 04/03/16 06:49 RDW 13.3 % (13.2-15.2) 04/03/16 06:49 Plt Count 187 K/mm3 (140-440) 04/03/16 06:49 Lymph % (Auto) 42.8 % (13.4-35.0) H 04/03/16 06:49 [place] % (Auto) 13.5 % (0.0-7.3) H 04/03/16 06:49 Eos % (Auto) 3.0 % (0.0-4.3) 04/03/16 06:49 Baso % (Auto) 0.6 % (0.0-1.8) 04/03/16 06:49 Lymph # 1.7 K/mm3 (1.2-5.4) 04/03/16 06:49 [place] # 0.5 K/mm3 (0.0-0.8) 04/03/16 06:49 Eos # 0.1 K/mm3 (0.0-0.4) 04/03/16 06:49 Baso # 0.0 K/mm3 (0.0-0.1) 04/03/16 06:49 Seg Neutrophils % 40.1 % (40.0-70.0) 04/03/16 06:49 Seg Neutrophils # 1.6 K/mm3 (1.8-7.7) L 04/03/16 06:49 Sodium 138 mmol/L (137-145) 04/03/16 Unknown Potassium 3.9 mmol/L (3.6-5.0) 04/03/16 Unknown Chloride 100.1 mmol/L (98-107) 04/03/16 Unknown Carbon Dioxide 25 mmol/L (22-30) 04/03/16 Unknown Anion Gap 17 mmol/L 04/03/16 Unknown BUN 16 mg/dL (9-20) 04/03/16 Unknown Creatinine 0.9 mg/dL (0.8-1.5) 04/03/16 Unknown Estimated GFR > 60 ml/min 04/03/16 Unknown BUN/Creatinine Ratio 17.77 % 04/03/16 Unknown Glucose 242 mg/dL (75-100) H 04/03/16 Unknown POC Glucose 233 (70-105) H 04/08/16 15:54 Calcium 8.6 mg/dL (8.4-10.2) 04/03/16 Unknown Total Bilirubin 0.5 mg/dL (0.1-1.2) 04/03/16 Unknown AST 21 units/L (5-40) 04/03/16 Unknown ALT 26 units/L (7-56) 04/03/16 Unknown Alkaline Phosphatase 61 units/L (35-129) 04/03/16 Unknown Total Protein 6.9 g/dL (6.3-8.2) 04/03/16 Unknown Albumin 4.0 g/dL (3.9-5) 04/03/16 Unknown Albumin/Globulin Ratio 1.4 % 04/03/16 Unknown
[2016-04-08] MEDS ORDERED: LEVEMIR SUB-Q SCH (21:00)
[2016-04-08] MEDS: ZOCOR PO SCH (21:52)
[2016-04-09] MEDS: NOVOLOG SUB-Q SCH ×4 (08:27→21:15)
[2016-04-09] MEDS: ASPIRIN PO SCH (09:04)
[2016-04-09] MEDS: LOVENOX SUB-Q SCH (09:05)
--- NOTE | 2016-04-09 11:50 | Progress Note ---
Assessment and Plan Assessment and plan: 1. Uncontrolled diabetes - oral anti-diabetics discontinued and started on long -acting insulin along with SSI based on Accu-Cheks. BS still elevated. Will further increase Levemir to 14 units daily at bedtime; continue to monitor and make adjustments as necessary 2. Hypertension - BP controlled on Amlodipine 3. Hyperlipidemia - on statin 4. CVA - with residual dysarthria and right-sided weakness; on aspirin and statin; PT/OT/ST in inpatient rehabilitation 5. DVT prophylaxis - Lovenox History Interval history: doing well, working with PT Hospitalist Physical - Constitutional Vitals: Temp Pulse Resp BP Pulse Ox 99.1 F 76 22 117/66 97 04/09/16 07:30 04/09/16 07:30 04/09/16 07:30 04/09/16 07:30 04/09/16 07:30 General appearance: Present: no acute distress, well-nourished - EENT Eyes: Present: PERRL, EOM intact. Absent: scleral icterus, conjunctival injection - Neck Neck: Present: supple, normal ROM. Absent: masses or JVD - Respiratory Respiratory effort: normal Respiratory: bilateral: CTA, negative: rhonchi, wheezing - Cardiovascular Rhythm: regular Heart Sounds: Present: S1 & S2. Absent: systolic murmur - Extremities Extremities: no ischemia - Abdominal General gastrointestinal: soft, non-tender, non-distended, normal bowel sounds - Psychiatric Psychiatric: cooperative - Neurologic Neurologic: other (right sided weakness) Results - Labs CBC & Chem 7: 04/03/16 06:49 04/03/16 Unknown Labs: Laboratory Last Values WBC 4.1 K/mm3 (4.5-11.0) L 04/03/16 06:49 RBC 4.75 M/mm3 (3.65-5.03) 04/03/16 06:49 Hgb 13.6 gm/dl (11.8-15.2) 04/03/16 06:49 Hct 41.2 % (35.5-45.6) 04/03/16 06:49 MCV 87 fl (84-94) 04/03/16 06:49 MCH 29 pg (28-32) 04/03/16 06:49 MCHC 33 % (32-34) 04/03/16 06:49 RDW 13.3 % (13.2-15.2) 04/03/16 06:49 Plt Count 187 K/mm3 (140-440) 04/03/16 06:49 Lymph % (Auto) 42.8 % (13.4-35.0) H 04/03/16 06:49 [place] % (Auto) 13.5 % (0.0-7.3) H 04/03/16 06:49 Eos % (Auto) 3.0 % (0.0-4.3) 04/03/16 06:49 Baso % (Auto) 0.6 % (0.0-1.8) 04/03/16 06:49 Lymph # 1.7 K/mm3 (1.2-5.4) 04/03/16 06:49 [place] # 0.5 K/mm3 (0.0-0.8) 04/03/16 06:49 Eos # 0.1 K/mm3 (0.0-0.4) 04/03/16 06:49 Baso # 0.0 K/mm3 (0.0-0.1) 04/03/16 06:49 Seg Neutrophils % 40.1 % (40.0-70.0) 04/03/16 06:49 Seg Neutrophils # 1.6 K/mm3 (1.8-7.7) L 04/03/16 06:49 Sodium 138 mmol/L (137-145) 04/03/16 Unknown Potassium 3.9 mmol/L (3.6-5.0) 04/03/16 Unknown Chloride 100.1 mmol/L (98-107) 04/03/16 Unknown Carbon Dioxide 25 mmol/L (22-30) 04/03/16 Unknown Anion Gap 17 mmol/L 04/03/16 Unknown BUN 16 mg/dL (9-20) 04/03/16 Unknown Creatinine 0.9 mg/dL (0.8-1.5) 04/03/16 Unknown Estimated GFR > 60 ml/min 04/03/16 Unknown BUN/Creatinine Ratio 17.77 % 04/03/16 Unknown Glucose 242 mg/dL (75-100) H 04/03/16 Unknown POC Glucose 197 (70-105) H 04/09/16 11:44 Calcium 8.6 mg/dL (8.4-10.2) 04/03/16 Unknown Total Bilirubin 0.5 mg/dL (0.1-1.2) 04/03/16 Unknown AST 21 units/L (5-40) 04/03/16 Unknown ALT 26 units/L (7-56) 04/03/16 Unknown Alkaline Phosphatase 61 units/L (35-129) 04/03/16 Unknown Total Protein 6.9 g/dL (6.3-8.2) 04/03/16 Unknown Albumin 4.0 g/dL (3.9-5) 04/03/16 Unknown Albumin/Globulin Ratio 1.4 % 04/03/16 Unknown
[2016-04-09] MEDS: NORVASC PO SCH (13:12)
--- NOTE | 2016-04-09 15:52 | Progress Note ---
Assessment and Plan 55 y.o. left handed male s/p left posterior basal ganglia infarct, gait dysfunction and dysarthria - s/p CVA- ASA, statin - gait dysfunction secondary to CVA- ambulating with large based quad cane >300 feet - DM- appreciate IM consult with noted increase in levemir for better control - HTN- well controlled - DVT px- lovenox - Patient Problems (1) Left-sided cerebrovascular accident (CVA) Current Visit: Yes Status: Acute (2) Hemiparesis affecting right side as late effect of cerebrovascular accident Current Visit: Yes Status: Acute (3) Dysarthria due to cerebrovascular accident (CVA) Current Visit: Yes Status: Acute (4) HTN (hypertension) Current Visit: Yes Status: Chronic Qualifiers: Hypertension type: essential hypertension Qualified Code(s): I10 - Essential (primary) hypertension (5) Diabetes Current Visit: Yes Status: Chronic Qualifiers: Diabetes mellitus type: type 2 Diabetes mellitus complication status: with hyperglycemia Diabetes mellitus complication detail: D Diabetic retinopathy severity: D Proliferative retinopathy type: P Diabetes mellitus macular edema: D Diabetes mellitus terminal system operator insulin use: without penitentiary use Laterality: L Chronic kidney disease stage: C Qualified Code(s): E11.65 - Type 2 diabetes mellitus with hyperglycemia (6) Abnormality of gait following cerebrovascular accident (CVA) Current Visit: Yes Status: Acute Subjective Date of service: 04/09/16 Principal diagnosis: left posterior basal ganglia infarct Interval history: Pt seen in room this AM, F/U IPR course, s/p left posterior basal ganglia infarct. Improved right sided strength noted on today; no new complaints Objective - Constitutional Vitals: Vital Signs - 12hr 04/09/16 04/09/16 07:30 13:12 Temperature 99.1 F Pulse Rate 85 Pulse Rate [ 76 Left Brachial] Respiratory 22 Rate Blood Pressure 117/72 Blood Pressure 117/66 [Left Arm] O2 Sat by Pulse 97 Oximetry General appearance: Present: no acute distress, other (seated in WC) - EENT Eyes: EOM intact ENT: hearing intact - Neck Neck: supple, normal ROM - Respiratory Respiratory effort: normal Respiratory: bilateral: CTA - Cardiovascular Rhythm: regular Heart Sounds: Present: S1 & S2 Extremities: No edema - Gastrointestinal General gastrointestinal: Present: soft, non-tender, non-distended, normal bowel sounds - Integumentary Integumentary: clear - Musculoskeletal Musculoskeletal: right sided weakness (3/5 throughout) - Neurologic Neurologic: other (stable facial droop; improved dysarthria) - Psychiatric Psychiatric: appropriate mood/affect, intact judgment & insight, memory intact, cooperative - Allied health notes Allied health notes reviewed: PT (supervision for transfers; CGA for gait with Large based quad cane), OT (SBA for transfers) - Labs CBC & Chem 7: 04/03/16 06:49 04/03/16 Unknown Labs: Abnormal lab results 04/08/16 04/08/16 04/08/16 Range/Units 11:47 15:54 21:04 POC Glucose 188 H 233 H 247 H (70-105) 04/09/16 04/09/16 Range/Units 06:37 11:44 POC Glucose 169 H 197 H (70-105)
[2016-04-09] MEDS: ZOCOR PO SCH (21:12)
[2016-04-09] MEDS: LEVEMIR SUB-Q SCH (21:13)
[2016-04-10] MEDS: ASPIRIN PO SCH (08:31)
[2016-04-10] MEDS: LOVENOX SUB-Q SCH (08:32)
[2016-04-10] MEDS: NORVASC PO SCH ×2 (08:32→10:09)
[2016-04-10] MEDS: NOVOLOG SUB-Q SCH ×4 (08:33→21:22)
--- NOTE | 2016-04-10 11:16 | Progress Note ---
Assessment and Plan - Patient Problems (1) Left-sided cerebrovascular accident (CVA) Current Visit: Yes Status: Acute Plan to address problem: continue stroke protocol, supportive care, antiplatelet therapy, Case management consulted for discharge planning. (2) Abnormality of gait following cerebrovascular accident (CVA) Current Visit: Yes Status: Acute Plan to address problem: PT consulted. (3) Hemiparesis affecting right side as late effect of cerebrovascular accident Current Visit: Yes Status: Acute Plan to address problem: PT consulted, Pending placement (4) Diabetes Current Visit: Yes Status: Chronic Qualifiers: Diabetes mellitus type: type 2 Diabetes mellitus complication status: with hyperglycemia Diabetes mellitus complication detail: D Diabetic retinopathy severity: D Proliferative retinopathy type: P Diabetes mellitus macular edema: D Diabetes mellitus intermodal dispatcher insulin use: without longterm use Laterality: L Chronic kidney disease stage: C Qualified Code(s): E11.65 - Type 2 diabetes mellitus with hyperglycemia Plan to address problem: ADA diet, insulin, accu check (5) HTN (hypertension) Current Visit: Yes Status: Chronic Qualifiers: Hypertension type: essential hypertension Qualified Code(s): I10 - Essential (primary) hypertension Plan to address problem: monitor bp q shift, continue current therapy. (6) DVT prophylaxis Current Visit: Yes Status: Acute History Interval history: Pt resting in chair. Pt denies fever, chills, CP, palpitations, NVD, No reported nursing events. Hospitalist Physical - Constitutional Vitals: Temp Pulse Resp BP Pulse Ox 97.9 F 70 20 132/76 96 04/10/16 08:30 04/10/16 08:32 04/10/16 08:30 04/10/16 08:32 04/10/16 08:30 General appearance: Present: no acute distress, other (seated in WC) - EENT Eyes: Present: PERRL ENT: hearing intact - Neck Neck: Present: supple - Respiratory Respiratory: bilateral: diminished - Cardiovascular Rhythm: regular Heart Sounds: Present: S1 & S2 - Extremities Extremities: no ischemia Peripheral Pulses: within normal limits - Abdominal General gastrointestinal: soft, non-tender, non-distended - Integumentary Integumentary: Present: clear, dry - Psychiatric Psychiatric: appropriate mood/affect, cooperative - Neurologic Neurologic: no CNII-XII intact, focal deficits, no moves all extremities, no gait normal Results - Labs CBC & Chem 7: 04/03/16 06:49 04/03/16 Unknown Labs: Laboratory Last Values WBC 4.1 K/mm3 (4.5-11.0) L 04/03/16 06:49 RBC 4.75 M/mm3 (3.65-5.03) 04/03/16 06:49 Hgb 13.6 gm/dl (11.8-15.2) 04/03/16 06:49 Hct 41.2 % (35.5-45.6) 04/03/16 06:49 MCV 87 fl (84-94) 04/03/16 06:49 MCH 29 pg (28-32) 04/03/16 06:49 MCHC 33 % (32-34) 04/03/16 06:49 RDW 13.3 % (13.2-15.2) 04/03/16 06:49 Plt Count 187 K/mm3 (140-440) 04/03/16 06:49 Lymph % (Auto) 42.8 % (13.4-35.0) H 04/03/16 06:49 [place] % (Auto) 13.5 % (0.0-7.3) H 04/03/16 06:49 Eos % (Auto) 3.0 % (0.0-4.3) 04/03/16 06:49 Baso % (Auto) 0.6 % (0.0-1.8) 04/03/16 06:49 Lymph # 1.7 K/mm3 (1.2-5.4) 04/03/16 06:49 [place] # 0.5 K/mm3 (0.0-0.8) 04/03/16 06:49 Eos # 0.1 K/mm3 (0.0-0.4) 04/03/16 06:49 Baso # 0.0 K/mm3 (0.0-0.1) 04/03/16 06:49 Seg Neutrophils % 40.1 % (40.0-70.0) 04/03/16 06:49 Seg Neutrophils # 1.6 K/mm3 (1.8-7.7) L 04/03/16 06:49 Sodium 138 mmol/L (137-145) 04/03/16 Unknown Potassium 3.9 mmol/L (3.6-5.0) 04/03/16 Unknown Chloride 100.1 mmol/L (98-107) 04/03/16 Unknown Carbon Dioxide 25 mmol/L (22-30) 04/03/16 Unknown Anion Gap 17 mmol/L 04/03/16 Unknown BUN 16 mg/dL (9-20) 04/03/16 Unknown Creatinine 0.9 mg/dL (0.8-1.5) 04/03/16 Unknown Estimated GFR > 60 ml/min 04/03/16 Unknown BUN/Creatinine Ratio 17.77 % 04/03/16 Unknown Glucose 242 mg/dL (75-100) H 04/03/16 Unknown POC Glucose 169 (70-105) H 04/10/16 06:12 Calcium 8.6 mg/dL (8.4-10.2) 04/03/16 Unknown Total Bilirubin 0.5 mg/dL (0.1-1.2) 04/03/16 Unknown AST 21 units/L (5-40) 04/03/16 Unknown ALT 26 units/L (7-56) 04/03/16 Unknown Alkaline Phosphatase 61 units/L (35-129) 04/03/16 Unknown Total Protein 6.9 g/dL (6.3-8.2) 04/03/16 Unknown Albumin 4.0 g/dL (3.9-5) 04/03/16 Unknown Albumin/Globulin Ratio 1.4 % 04/03/16 Unknown
--- NOTE | 2016-04-10 12:13 | Progress Note ---
Assessment and Plan 55 y.o. left handed male s/p left posterior basal ganglia infarct, gait dysfunction and dysarthria - s/p CVA- ASA, statin - gait dysfunction secondary to CVA- CGA to supervision for gait; continues to improve level of independence with gait - DM- on 14U of levemir QHS; follow blood sugars - HTN- remains well controlled - DVT px- lovenox - Patient Problems (1) Left-sided cerebrovascular accident (CVA) Current Visit: Yes Status: Acute (2) Hemiparesis affecting right side as late effect of cerebrovascular accident Current Visit: Yes Status: Acute (3) Dysarthria due to cerebrovascular accident (CVA) Current Visit: Yes Status: Acute (4) HTN (hypertension) Current Visit: Yes Status: Chronic Qualifiers: Hypertension type: essential hypertension Qualified Code(s): I10 - Essential (primary) hypertension (5) Diabetes Current Visit: Yes Status: Chronic Qualifiers: Diabetes mellitus type: type 2 Diabetes mellitus complication status: with hyperglycemia Diabetes mellitus complication detail: D Diabetic retinopathy severity: D Proliferative retinopathy type: P Diabetes mellitus macular edema: D 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 Education provided on return to work/disability; no new complaints Objective - Constitutional Vitals: Vital Signs - 12hr 04/10/16 04/10/16 08:30 08:32 Temperature 97.9 F Pulse Rate 70 Pulse Rate [ 70 Left Radial] Respiratory 20 Rate Blood Pressure 132/76 Blood Pressure 132/76 [Left Arm] O2 Sat by Pulse 96 Oximetry General appearance: Present: no acute distress - EENT Eyes: EOM intact ENT: hearing intact - Neck Neck: supple, normal ROM - Respiratory Respiratory effort: normal Extremities: No edema - Gastrointestinal General gastrointestinal: Present: soft, non-tender, non-distended - Integumentary Integumentary: clear - Musculoskeletal Musculoskeletal: right sided weakness - Neurologic Neurologic: other (dysarthria ongoing) - Psychiatric Psychiatric: appropriate mood/affect, intact judgment & insight, memory intact, cooperative - Allied health notes Allied health notes reviewed: nursing (supervision for transfers and bathing; Pawan for dressing) - Labs CBC & Chem 7: 04/03/16 06:49 04/03/16 Unknown Labs: Abnormal lab results 04/09/16 04/09/16 04/10/16 Range/Units 16:40 21:04 06:12 POC Glucose 262 H 230 H 169 H (70-105) 04/10/16 Range/Units 11:37 POC Glucose 168 H (70-105)
[2016-04-10] MEDS: ZOCOR PO SCH (21:20)
[2016-04-10] MEDS: LEVEMIR SUB-Q SCH (21:22)
--- NOTE | 2016-04-11 08:41 | Progress Note ---
Assessment and Plan - Patient Problems (1) Hyperlipidemia Current Visit: Yes Status: Acute Qualifiers: Hyperlipidemia type: H Plan to address problem: Continue meds. Follow lipid panel (2) Left-sided cerebrovascular accident (CVA) Current Visit: Yes Status: Acute Plan to address problem: Continue aspirin. Continue physical therapy occupational therapy (3) Diabetes Current Visit: Yes Status: Chronic Qualifiers: Diabetes mellitus type: type 2 Diabetes mellitus complication status: with hyperglycemia Diabetes mellitus complication detail: D Diabetic retinopathy severity: D Proliferative retinopathy type: P Diabetes mellitus macular edema: D Diabetes mellitus long term care administrator insulin use: without long term care administrator use Laterality: L Chronic kidney disease stage: C Qualified Code(s): E11.65 - Type 2 diabetes mellitus with hyperglycemia Plan to address problem: Continue Levemir 14 units daily at bedtime. Continue to follow Accu-Cheks and hemoglobin A1c (4) HTN (hypertension) Current Visit: Yes Status: Chronic Qualifiers: Hypertension type: essential hypertension Qualified Code(s): I10 - Essential (primary) hypertension Plan to address problem: Continue blood pressure meds. Blood pressure well controlled History Interval history: Patient lying in bed and feels better today Hospitalist Physical - Constitutional Vitals: Temp Pulse Resp BP Pulse Ox 98.1 F 89 18 120/71 96 04/10/16 20:00 04/10/16 20:00 04/10/16 20:00 04/10/16 20:00 04/10/16 20:00 General appearance: Present: no acute distress - EENT Eyes: Present: PERRL, EOM intact ENT: hearing intact, clear oral mucosa - Neck Neck: Present: supple, normal ROM - Respiratory Respiratory effort: normal Respiratory: bilateral: CTA - Cardiovascular Rhythm: regular Heart Sounds: Present: S1 & S2 - Extremities Extremities: no ischemia, No edema - Abdominal General gastrointestinal: soft, non-tender, non-distended, normal bowel sounds - Psychiatric Psychiatric: appropriate mood/affect, intact judgment & insight Results - Labs CBC & Chem 7: 04/03/16 06:49 04/03/16 Unknown Labs: Laboratory Last Values WBC 4.1 K/mm3 (4.5-11.0) L 04/03/16 06:49 RBC 4.75 M/mm3 (3.65-5.03) 04/03/16 06:49 Hgb 13.6 gm/dl (11.8-15.2) 04/03/16 06:49 Hct 41.2 % (35.5-45.6) 04/03/16 06:49 MCV 87 fl (84-94) 04/03/16 06:49 MCH 29 pg (28-32) 04/03/16 06:49 MCHC 33 % (32-34) 04/03/16 06:49 RDW 13.3 % (13.2-15.2) 04/03/16 06:49 Plt Count 187 K/mm3 (140-440) 04/03/16 06:49 Lymph % (Auto) 42.8 % (13.4-35.0) H 04/03/16 06:49 [place] % (Auto) 13.5 % (0.0-7.3) H 04/03/16 06:49 Eos % (Auto) 3.0 % (0.0-4.3) 04/03/16 06:49 Baso % (Auto) 0.6 % (0.0-1.8) 04/03/16 06:49 Lymph # 1.7 K/mm3 (1.2-5.4) 04/03/16 06:49 [place] # 0.5 K/mm3 (0.0-0.8) 04/03/16 06:49 Eos # 0.1 K/mm3 (0.0-0.4) 04/03/16 06:49 Baso # 0.0 K/mm3 (0.0-0.1) 04/03/16 06:49 Seg Neutrophils % 40.1 % (40.0-70.0) 04/03/16 06:49 Seg Neutrophils # 1.6 K/mm3 (1.8-7.7) L 04/03/16 06:49 Sodium 138 mmol/L (137-145) 04/03/16 Unknown Potassium 3.9 mmol/L (3.6-5.0) 04/03/16 Unknown Chloride 100.1 mmol/L (98-107) 04/03/16 Unknown Carbon Dioxide 25 mmol/L (22-30) 04/03/16 Unknown Anion Gap 17 mmol/L 04/03/16 Unknown BUN 16 mg/dL (9-20) 04/03/16 Unknown Creatinine 0.9 mg/dL (0.8-1.5) 04/03/16 Unknown Estimated GFR > 60 ml/min 04/03/16 Unknown BUN/Creatinine Ratio 17.77 % 04/03/16 Unknown Glucose 242 mg/dL (75-100) H 04/03/16 Unknown POC Glucose 146 (70-105) H 04/11/16 06:43 Calcium 8.6 mg/dL (8.4-10.2) 04/03/16 Unknown Total Bilirubin 0.5 mg/dL (0.1-1.2) 04/03/16 Unknown AST 21 units/L (5-40) 04/03/16 Unknown ALT 26 units/L (7-56) 04/03/16 Unknown Alkaline Phosphatase 61 units/L (35-129) 04/03/16 Unknown Total Protein 6.9 g/dL (6.3-8.2) 04/03/16 Unknown Albumin 4.0 g/dL (3.9-5) 04/03/16 Unknown Albumin/Globulin Ratio 1.4 % 04/03/16 Unknown
[2016-04-11] MEDS: LOVENOX SUB-Q SCH (08:49)
[2016-04-11] MEDS: ASPIRIN PO SCH (08:49)
[2016-04-11] MEDS: NOVOLOG SUB-Q SCH ×4 (08:51→22:37)
[2016-04-11] MEDS: NORVASC PO SCH (10:00)
--- NOTE | 2016-04-11 15:52 | Progress Note ---
Assessment and Plan 55 y.o. left handed male s/p left posterior basal ganglia infarct, gait dysfunction and dysarthria - s/p CVA- ASA, statin - gait dysfunction secondary to CVA- supervision with gait - DM- continue on 14U of levemir QHS; IM following - HTN- stable - DVT px- lovenox - team conference held on today- pt is Jason for eating, grooming, bathing; supervision for UB dressing, toileting, transfers and gait, ambulating 340 feet with SBQC; SBA for LB dressing and curbs; Jason for stairs, wheelchair mobility and bed mobility. Supervision with verbal expression. Barriers- safety; educated on today. D/C date maintained at 04/16, goal of Jason with all self cares and mobility - Patient Problems (1) Left-sided cerebrovascular accident (CVA) Current Visit: Yes Status: Acute (2) Hemiparesis affecting right side as late effect of cerebrovascular accident Current Visit: Yes Status: Acute (3) Dysarthria due to cerebrovascular accident (CVA) Current Visit: Yes Status: Acute (4) HTN (hypertension) Current Visit: Yes Status: Chronic Qualifiers: Hypertension type: essential hypertension Qualified Code(s): I10 - Essential (primary) hypertension (5) Diabetes Current Visit: Yes Status: Chronic Qualifiers: Diabetes mellitus type: type 2 Diabetes mellitus complication status: with hyperglycemia Diabetes mellitus complication detail: D Diabetic retinopathy severity: D Proliferative retinopathy type: P Diabetes mellitus macular edema: D Diabetes mellitus intermission coordinator insulin use: without intermission coordinator use Laterality: L Chronic kidney disease stage: C Qualified Code(s): E11.65 - Type 2 diabetes mellitus with hyperglycemia (6) Abnormality of gait following cerebrovascular accident (CVA) Current Visit: Yes Status: Acute Subjective Date of service: 04/11/16 Principal diagnosis: left posterior basal ganglia infarct Interval history: Pt seen in room this afternoon, F/U IPR course, s/p left posterior basal ganglia infarct. Education provided on safety; no new complaints Objective - Constitutional Vitals: Vital Signs - 12hr 04/11/16 08:00 Temperature 98.3 F Pulse Rate [ 92 H Right Brachial] Respiratory 20 Rate Blood Pressure 114/70 [Right Arm] O2 Sat by Pulse 98 Oximetry General appearance: Present: no acute distress - EENT Eyes: EOM intact ENT: hearing intact - Neck Neck: supple, normal ROM - Respiratory Respiratory effort: normal Extremities: No edema - Gastrointestinal General gastrointestinal: Present: soft, non-tender, non-distended - Integumentary Integumentary: clear - Musculoskeletal Musculoskeletal: right sided weakness - Psychiatric Psychiatric: appropriate mood/affect, intact judgment & insight, memory intact, cooperative - Labs CBC & Chem 7: 04/03/16 06:49 04/03/16 Unknown Labs: Abnormal lab results 04/10/16 04/10/16 04/11/16 Range/Units 16:22 21:05 06:43 POC Glucose 245 H 154 H 146 H (70-105) 04/11/16 Range/Units 11:42 POC Glucose 233 H (70-105)
[2016-04-11] MEDS: ZOCOR PO SCH (22:36)
[2016-04-11] MEDS: LEVEMIR SUB-Q SCH (22:37)
[2016-04-12 04:45] LABS: Hematocrit 38.4 % (35.5-45.6); Hemoglobin 12.7 gm/dl (11.8-15.2); Mean Corpuscular HGB Conc 33 % (32-34); Mean Corpuscular Hemoglobin 29 pg (28-32); Mean Corpuscular Volume 87 fl (84-94); Platelet Count 188 K/mm3 (140-440); Red Blood Count 4.44 M/mm3 (3.65-5.03); Red Cell Distribution Width 13.3 % (13.2-15.2); White Blood Count 4.2 K/mm3 (4.5-11.0)
[2016-04-12 05:40] LABS: Basophils % (Manual) 0 % (0.0-1.8); Blastocytes % (Manual) 0 %; Diff Status Complete; Platelet Estimate Consistent w Auto; RBC Morphology Normal
[2016-04-12 05:47] LABS: Alanine Aminotransferase 71 units/L (7-56); Albumin 3.6 g/dL (3.9-5); Albumin/Globulin Ratio 1.4 %; Alkaline Phosphatase 52 units/L (35-129); Anion Gap 15 mmol/L; Bilirubin,Total 0.2 mg/dL (0.1-1.2); Blood Urea Nitrogen 15 mg/dL (9-20); Calcium 8.7 mg/dL (8.4-10.2); Carbon Dioxide 26 mmol/L (22-30); Chloride 106.5 mmol/L (98-107); Glucose 124 mg/dL (75-100); Potassium 3.9 mmol/L (3.6-5.0); Sodium 144 mmol/L (137-145); Total Protein 6.1 g/dL (6.3-8.2)
--- NOTE | 2016-04-12 06:30 | Progress Note ---
Assessment and Plan - Patient Problems (1) Hyperlipidemia Current Visit: Yes Status: Acute Qualifiers: Hyperlipidemia type: H Plan to address problem: Continue meds. Follow lipid panel (2) Left-sided cerebrovascular accident (CVA) Current Visit: Yes Status: Acute Plan to address problem: Continue aspirin. 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 Continue to follow Accu-Cheks and hemoglobin A1c (4) HTN (hypertension) Current Visit: Yes Status: Chronic Qualifiers: Hypertension type: essential hypertension Qualified Code(s): I10 - Essential (primary) hypertension Plan to address problem: Continue blood pressure meds. Blood pressure well controlled History Interval history: Patient lying in bed and feels better today Hospitalist Physical - Constitutional Vitals: Temp Pulse Resp BP Pulse Ox 98.1 F 72 18 119/69 98 04/11/16 22:00 04/11/16 22:00 04/11/16 22:00 04/11/16 22:00 04/11/16 22:00 General appearance: Present: no acute distress - EENT Eyes: Present: PERRL, EOM intact ENT: hearing intact, clear oral mucosa - Neck Neck: Present: supple, normal ROM - Respiratory Respiratory effort: normal Respiratory: bilateral: CTA - Cardiovascular Rhythm: regular Heart Sounds: Present: S1 & S2 - Abdominal General gastrointestinal: soft, non-tender, non-distended, normal bowel sounds - Psychiatric Psychiatric: appropriate mood/affect, intact judgment & insight - Neurologic Neurologic: CNII-XII intact, moves all extremities Results - Labs CBC & Chem 7: 04/12/16 04:17 04/12/16 04:17 Labs: Laboratory Last Values WBC 4.2 K/mm3 (4.5-11.0) L 04/12/16 04:17 RBC 4.44 M/mm3 (3.65-5.03) 04/12/16 04:17 Hgb 12.7 gm/dl (11.8-15.2) 04/12/16 04:17 Hct 38.4 % (35.5-45.6) 04/12/16 04:17 MCV 87 fl (84-94) 04/12/16 04:17 MCH 29 pg (28-32) 04/12/16 04:17 MCHC 33 % (32-34) 04/12/16 04:17 RDW 13.3 % (13.2-15.2) 04/12/16 04:17 Plt Count 188 K/mm3 (140-440) 04/12/16 04:17 Lymph % (Auto) 42.8 % (13.4-35.0) H 04/03/16 06:49 [place] % (Auto) 13.5 % (0.0-7.3) H 04/03/16 06:49 Eos % (Auto) 3.0 % (0.0-4.3) 04/03/16 06:49 Baso % (Auto) 0.6 % (0.0-1.8) 04/03/16 06:49 Lymph # 1.7 K/mm3 (1.2-5.4) 04/03/16 06:49 [place] # 0.5 K/mm3 (0.0-0.8) 04/03/16 06:49 Eos # 0.1 K/mm3 (0.0-0.4) 04/03/16 06:49 Baso # 0.0 K/mm3 (0.0-0.1) 04/03/16 06:49 Add Manual Diff Complete 04/12/16 04:17 Total Counted 100 04/12/16 04:17 Seg Neutrophils % Cmm Operator 04/12/16 04:17 Seg Neuts % (Manual) 35.0 % (40.0-70.0) L 04/12/16 04:17 Band Neutrophils % 0 % 04/12/16 04:17 Lymphocytes % (Manual) 50.0 % (13.4-35.0) H 04/12/16 04:17 Reactive Lymphs % (Man) 0 % 04/12/16 04:17 Monocytes % (Manual) 12.0 % (0.0-7.3) H 04/12/16 04:17 Eosinophils % (Manual) 3.0 % (0.0-4.3) 04/12/16 04:17 Basophils % (Manual) 0 % (0.0-1.8) 04/12/16 04:17 Metamyelocytes % 0 % 04/12/16 04:17 Myelocytes % 0 % 04/12/16 04:17 Promyelocytes % 0 % 04/12/16 04:17 Blast Cells % 0 % 04/12/16 04:17 Nucleated RBC % Not Reportable 04/12/16 04:17 Seg Neutrophils # 1.6 K/mm3 (1.8-7.7) L 04/03/16 06:49 Seg Neutrophils # Man 1.5 K/mm3 (1.8-7.7) L 04/12/16 04:17 Band Neutrophils # 0.0 K/mm3 04/12/16 04:17 Lymphocytes # (Manual) 2.1 K/mm3 (1.2-5.4) 04/12/16 04:17 Abs React Lymphs (Man) 0.0 K/mm3 04/12/16 04:17 Monocytes # (Manual) 0.5 K/mm3 (0.0-0.8) 04/12/16 04:17 Eosinophils # (Manual) 0.1 K/mm3 (0.0-0.4) 04/12/16 04:17 Basophils # (Manual) 0.0 K/mm3 (0.0-0.1) 04/12/16 04:17 Metamyelocytes # 0.0 K/mm3 04/12/16 04:17 Myelocytes # 0.0 K/mm3 04/12/16 04:17 Promyelocytes # 0.0 K/mm3 04/12/16 04:17 Blast Cells # 0.0 K/mm3 04/12/16 04:17 WBC Morphology Not Reportable 04/12/16 04:17 Hypersegmented Neuts Not Reportable 04/12/16 04:17 Hyposegmented Neuts Not Reportable 04/12/16 04:17 Hypogranular Neuts Not Reportable 04/12/16 04:17 Smudge Cells Not Reportable 04/12/16 04:17 Toxic Granulation Not Reportable 04/12/16 04:17 Toxic Vacuolation Not Reportable 04/12/16 04:17 Dohle Bodies Not Reportable 04/12/16 04:17 Pelger-Huet Anomaly Not Reportable 04/12/16 04:17 Rosio Rods Not Reportable 04/12/16 04:17 Platelet Estimate Consistent w auto 04/12/16 04:17 Clumped Platelets Not Reportable 04/12/16 04:17 Plt Clumps, EDTA Not Reportable 04/12/16 04:17 Large Platelets Not Reportable 04/12/16 04:17 Giant Platelets Not Reportable 04/12/16 04:17 Platelet Satelliting Not Reportable 04/12/16 04:17 Plt Morphology Comment Not Reportable 04/12/16 04:17 RBC Morphology Normal 04/12/16 04:17 Dimorphic RBCs Not Reportable 04/12/16 04:17 Polychromasia Not Reportable 04/12/16 04:17 Hypochromasia Not Reportable 04/12/16 04:17 Poikilocytosis Not Reportable 04/12/16 04:17 Anisocytosis Not Reportable 04/12/16 04:17 Microcytosis Not Reportable 04/12/16 04:17 Macrocytosis Not Reportable 04/12/16 04:17 Spherocytes Not Reportable 04/12/16 04:17 Pappenheimer Bodies Not Reportable 04/12/16 04:17 Sickle Cells Not Reportable 04/12/16 04:17 Target Cells Not Reportable 04/12/16 04:17 Tear Drop Cells Not Reportable 04/12/16 04:17 Ovalocytes Not Reportable 04/12/16 04:17 Helmet Cells Not Reportable 04/12/16 04:17 [place] Bodies Not Reportable 04/12/16 04:17 [place] Rings Not Reportable 04/12/16 04:17 [place] Cells Not Reportable 04/12/16 04:17 Bite Cells Not Reportable 04/12/16 04:17 Crenated Cell Not Reportable 04/12/16 04:17 Elliptocytes Not Reportable 04/12/16 04:17 Acanthocytes (Spur) Not Reportable 04/12/16 04:17 Rouleaux Not Reportable 04/12/16 04:17 Hemoglobin C Crystals Not Reportable 04/12/16 04:17 Schistocytes Not Reportable 04/12/16 04:17 Malaria parasites Not Reportable 04/12/16 04:17 Dev Bodies Not Reportable 04/12/16 04:17 Hem Pathologist Commnt No 04/12/16 04:17 Sodium 144 mmol/L (137-145) 04/12/16 04:17 Potassium 3.9 mmol/L (3.6-5.0) 04/12/16 04:17 Chloride 106.5 mmol/L (98-107) 04/12/16 04:17 Carbon Dioxide 26 mmol/L (22-30) 04/12/16 04:17 Anion Gap 15 mmol/L 04/12/16 04:17 BUN 15 mg/dL (9-20) 04/12/16 04:17 Creatinine 1.0 mg/dL (0.8-1.5) 04/12/16 04:17 Estimated GFR > 60 ml/min 04/12/16 04:17 BUN/Creatinine Ratio 15.00 % 04/12/16 04:17 Glucose 124 mg/dL (75-100) H 04/12/16 04:17 POC Glucose 185 (70-105) H 04/11/16 21:59 Hemoglobin A1c 12.2 % (4-6) H 04/11/16 14:47 Calcium 8.7 mg/dL (8.4-10.2) 04/12/16 04:17 Total Bilirubin 0.2 mg/dL (0.1-1.2) 04/12/16 04:17 AST 35 units/L (5-40) 04/12/16 04:17 ALT 71 units/L (7-56) H 04/12/16 04:17 Alkaline Phosphatase 52 units/L (35-129) 04/12/16 04:17 Total Protein 6.1 g/dL (6.3-8.2) L 04/12/16 04:17 Albumin 3.6 g/dL (3.9-5) L 04/12/16 04:17 Albumin/Globulin Ratio 1.4 % 04/12/16 04:17
[2016-04-12] MEDS: NOVOLOG SUB-Q SCH ×4 (08:00→22:13)
[2016-04-12] MEDS: NORVASC PO SCH (09:19)
[2016-04-12] MEDS: ASPIRIN PO SCH (09:19)
[2016-04-12] MEDS: LOVENOX SUB-Q SCH (09:20)
--- NOTE | 2016-04-12 16:09 | Progress Note ---
Assessment and Plan 55 y.o. left handed male s/p left posterior basal ganglia infarct, gait dysfunction and dysarthria - s/p CVA- ASA, statin - gait dysfunction secondary to CVA- ambulating with straight cane and without an AD with PT on today; supervision - DM- IM managing - HTN- stable - DVT px- lovenox - Patient Problems (1) Left-sided cerebrovascular accident (CVA) Current Visit: Yes Status: Acute (2) Hemiparesis affecting right side as late effect of cerebrovascular accident Current Visit: Yes Status: Acute (3) Dysarthria due to cerebrovascular accident (CVA) Current Visit: Yes Status: Acute (4) HTN (hypertension) Current Visit: Yes Status: Chronic Qualifiers: Hypertension type: essential hypertension Qualified Code(s): I10 - Essential (primary) hypertension (5) Diabetes Current Visit: Yes Status: Chronic Qualifiers: Diabetes mellitus type: type 2 Diabetes mellitus complication status: with hyperglycemia Diabetes mellitus complication detail: D Diabetic retinopathy severity: D Proliferative retinopathy type: P Diabetes mellitus macular edema: D Diabetes mellitus terminal operator insulin use: without terminal operator use Laterality: L Chronic kidney disease stage: C Qualified Code(s): E11.65 - Type 2 diabetes mellitus with hyperglycemia (6) Abnormality of gait following cerebrovascular accident (CVA) Current Visit: Yes Status: Acute Subjective Date of service: 04/12/16 Principal diagnosis: left posterior basal ganglia infarct Interval history: Pt seen in OT gym this AM, F/U IPR course, s/p left posterior basal ganglia infarct. Pt is without any complaints on today; denies any dizziness or lightheadedness with standing activity Objective - Constitutional Vitals: Vital Signs - 12hr 04/12/16 04/12/16 08:00 09:19 Temperature 97.5 F L Pulse Rate 82 Pulse Rate [ 82 Right Brachial] Respiratory 20 Rate Blood Pressure 147/81 Blood Pressure 147/81 [Right Arm] O2 Sat by Pulse 99 Oximetry General appearance: Present: no acute distress, other (standing with OT completing FM skills tasks) - EENT Eyes: EOM intact ENT: hearing intact - Neck Neck: supple, normal ROM - Respiratory Respiratory effort: normal Extremities: No edema - Gastrointestinal General gastrointestinal: Present: soft, non-tender - Integumentary Integumentary: clear - Musculoskeletal Musculoskeletal: right sided weakness - Neurologic Neurologic: other (effort shown to use compensatory strategies during conversation for dysarthria) - Psychiatric Psychiatric: appropriate mood/affect, intact judgment & insight, memory intact, cooperative - Allied health notes Allied health notes reviewed: PT (Jason for transfers; close supervision for gait with straight cane), OT (Jason for bathing, grooming, and dressing; supervision for transfers) - Labs CBC & Chem 7: 04/12/16 04:17 04/12/16 04:17 Labs: Abnormal lab results 04/11/16 04/11/16 04/11/16 Range/Units 14:47 17:04 21:59 WBC (4.5-11.0) K/mm3 Seg Neuts % (Manual) (40.0-70.0) % Lymphocytes % (Manual) (13.4-35.0) % Monocytes % (Manual) (0.0-7.3) % Seg Neutrophils # Man (1.8-7.7) K/mm3 Glucose (75-100) mg/dL POC Glucose 222 H 185 H (70-105) Hemoglobin A1c 12.2 H (4-6) % ALT (7-56) units/L Total Protein (6.3-8.2) g/dL Albumin (3.9-5) g/dL 04/12/16 04/12/16 04/12/16 Range/Units 04:17 04:17 06:42 WBC 4.2 L (4.5-11.0) K/mm3 Seg Neuts % (Manual) 35.0 L (40.0-70.0) % Lymphocytes % (Manual) 50.0 H (13.4-35.0) % Monocytes % (Manual) 12.0 H (0.0-7.3) % Seg Neutrophils # Man 1.5 L (1.8-7.7) K/mm3 Glucose 124 H (75-100) mg/dL POC Glucose 139 H (70-105) Hemoglobin A1c (4-6) % ALT 71 H (7-56) units/L Total Protein 6.1 L (6.3-8.2) g/dL Albumin 3.6 L (3.9-5) g/dL 04/12/16 Range/Units 11:33 WBC (4.5-11.0) K/mm3 Seg Neuts % (Manual) (40.0-70.0) % Lymphocytes % (Manual) (13.4-35.0) % Monocytes % (Manual) (0.0-7.3) % Seg Neutrophils # Man (1.8-7.7) K/mm3 Glucose (75-100) mg/dL POC Glucose 234 H (70-105) Hemoglobin A1c (4-6) % ALT (7-56) units/L Total Protein (6.3-8.2) g/dL Albumin (3.9-5) g/dL
[2016-04-12] MEDS: ZOCOR PO SCH (22:10)
[2016-04-12] MEDS: LEVEMIR SUB-Q SCH (22:10)
[2016-04-13] MEDS: NOVOLOG SUB-Q SCH ×4 (08:00→22:08)
[2016-04-13] MEDS: ASPIRIN PO SCH (10:02)
[2016-04-13] MEDS: NORVASC PO SCH (10:02)
[2016-04-13] MEDS: LOVENOX SUB-Q SCH (10:03)
--- NOTE | 2016-04-13 10:23 | Progress Note ---
Assessment and Plan - Patient Problems (1) Hyperlipidemia Current Visit: Yes Status: Acute Qualifiers: Hyperlipidemia type: H Plan to address problem: Continue meds. Follow lipid panel (2) Left-sided cerebrovascular accident (CVA) Current Visit: Yes Status: Acute Plan to address problem: Continue aspirin. Continue physical therapy occupational therapy (3) Diabetes Current Visit: Yes Status: Chronic Qualifiers: Diabetes mellitus type: type 2 Diabetes mellitus complication status: with hyperglycemia Diabetes mellitus complication detail: D Diabetic retinopathy severity: D Proliferative retinopathy type: P Diabetes mellitus macular edema: D Diabetes mellitus termite exterminator insulin use: without assisted use Laterality: L Chronic kidney disease stage: C Qualified Code(s): E11.65 - Type 2 diabetes mellitus with hyperglycemia Plan to address problem: Increase Levemir to 20 units daily at bedtime. Continue to follow Accu-Cheks and hemoglobin A1c (4) HTN (hypertension) Current Visit: Yes Status: Chronic Qualifiers: Hypertension type: essential hypertension Qualified Code(s): I10 - Essential (primary) hypertension Plan to address problem: Continue blood pressure meds. Blood pressure well controlled History Interval history: Patient lying in bed and feels better today Hospitalist Physical - Constitutional Vitals: Temp Pulse Resp BP Pulse Ox 98.4 F 76 20 110/70 100 04/13/16 07:30 04/13/16 10:02 04/13/16 07:30 04/13/16 10:02 04/13/16 07:30 General appearance: Present: no acute distress, other (standing with OT completing FM skills tasks) - EENT Eyes: Present: PERRL, EOM intact ENT: hearing intact, clear oral mucosa - Neck Neck: Present: supple, normal ROM - Respiratory Respiratory effort: normal Respiratory: bilateral: CTA - Cardiovascular Rhythm: regular Heart Sounds: Present: S1 & S2 - Abdominal General gastrointestinal: soft, non-tender, non-distended, normal bowel sounds - Psychiatric Psychiatric: appropriate mood/affect, intact judgment & insight - Neurologic Neurologic: CNII-XII intact, moves all extremities Results - Labs CBC & Chem 7: 04/12/16 04:17 04/12/16 04:17 Labs: Laboratory Last Values WBC 4.2 K/mm3 (4.5-11.0) L 04/12/16 04:17 RBC 4.44 M/mm3 (3.65-5.03) 04/12/16 04:17 Hgb 12.7 gm/dl (11.8-15.2) 04/12/16 04:17 Hct 38.4 % (35.5-45.6) 04/12/16 04:17 MCV 87 fl (84-94) 04/12/16 04:17 MCH 29 pg (28-32) 04/12/16 04:17 MCHC 33 % (32-34) 04/12/16 04:17 RDW 13.3 % (13.2-15.2) 04/12/16 04:17 Plt Count 188 K/mm3 (140-440) 04/12/16 04:17 Lymph % (Auto) 42.8 % (13.4-35.0) H 04/03/16 06:49 [place] % (Auto) 13.5 % (0.0-7.3) H 04/03/16 06:49 Eos % (Auto) 3.0 % (0.0-4.3) 04/03/16 06:49 Baso % (Auto) 0.6 % (0.0-1.8) 04/03/16 06:49 Lymph # 1.7 K/mm3 (1.2-5.4) 04/03/16 06:49 [place] # 0.5 K/mm3 (0.0-0.8) 04/03/16 06:49 Eos # 0.1 K/mm3 (0.0-0.4) 04/03/16 06:49 Baso # 0.0 K/mm3 (0.0-0.1) 04/03/16 06:49 Add Manual Diff Complete 04/12/16 04:17 Total Counted 100 04/12/16 04:17 Seg Neutrophils % Lead Technologist In [employer] 04/12/16 04:17 Seg Neuts % (Manual) 35.0 % (40.0-70.0) L 04/12/16 04:17 Band Neutrophils % 0 % 04/12/16 04:17 Lymphocytes % (Manual) 50.0 % (13.4-35.0) H 04/12/16 04:17 Reactive Lymphs % (Man) 0 % 04/12/16 04:17 Monocytes % (Manual) 12.0 % (0.0-7.3) H 04/12/16 04:17 Eosinophils % (Manual) 3.0 % (0.0-4.3) 04/12/16 04:17 Basophils % (Manual) 0 % (0.0-1.8) 04/12/16 04:17 Metamyelocytes % 0 % 04/12/16 04:17 Myelocytes % 0 % 04/12/16 04:17 Promyelocytes % 0 % 04/12/16 04:17 Blast Cells % 0 % 04/12/16 04:17 Nucleated RBC % Not Reportable 04/12/16 04:17 Seg Neutrophils # 1.6 K/mm3 (1.8-7.7) L 04/03/16 06:49 Seg Neutrophils # Man 1.5 K/mm3 (1.8-7.7) L 04/12/16 04:17 Band Neutrophils # 0.0 K/mm3 04/12/16 04:17 Lymphocytes # (Manual) 2.1 K/mm3 (1.2-5.4) 04/12/16 04:17 Abs React Lymphs (Man) 0.0 K/mm3 04/12/16 04:17 Monocytes # (Manual) 0.5 K/mm3 (0.0-0.8) 04/12/16 04:17 Eosinophils # (Manual) 0.1 K/mm3 (0.0-0.4) 04/12/16 04:17 Basophils # (Manual) 0.0 K/mm3 (0.0-0.1) 04/12/16 04:17 Metamyelocytes # 0.0 K/mm3 04/12/16 04:17 Myelocytes # 0.0 K/mm3 04/12/16 04:17 Promyelocytes # 0.0 K/mm3 04/12/16 04:17 Blast Cells # 0.0 K/mm3 04/12/16 04:17 WBC Morphology Not Reportable 04/12/16 04:17 Hypersegmented Neuts Not Reportable 04/12/16 04:17 Hyposegmented Neuts Not Reportable 04/12/16 04:17 Hypogranular Neuts Not Reportable 04/12/16 04:17 Smudge Cells Not Reportable 04/12/16 04:17 Toxic Granulation Not Reportable 04/12/16 04:17 Toxic Vacuolation Not Reportable 04/12/16 04:17 Dohle Bodies Not Reportable 04/12/16 04:17 Pelger-Huet Anomaly Not Reportable 04/12/16 04:17 Rosio Rods Not Reportable 04/12/16 04:17 Platelet Estimate Consistent w auto 04/12/16 04:17 Clumped Platelets Not Reportable 04/12/16 04:17 Plt Clumps, EDTA Not Reportable 04/12/16 04:17 Large Platelets Not Reportable 04/12/16 04:17 Giant Platelets Not Reportable 04/12/16 04:17 Platelet Satelliting Not Reportable 04/12/16 04:17 Plt Morphology Comment Not Reportable 04/12/16 04:17 RBC Morphology Normal 04/12/16 04:17 Dimorphic RBCs Not Reportable 04/12/16 04:17 Polychromasia Not Reportable 04/12/16 04:17 Hypochromasia Not Reportable 04/12/16 04:17 Poikilocytosis Not Reportable 04/12/16 04:17 Anisocytosis Not Reportable 04/12/16 04:17 Microcytosis Not Reportable 04/12/16 04:17 Macrocytosis Not Reportable 04/12/16 04:17 Spherocytes Not Reportable 04/12/16 04:17 Pappenheimer Bodies Not Reportable 04/12/16 04:17 Sickle Cells Not Reportable 04/12/16 04:17 Target Cells Not Reportable 04/12/16 04:17 Tear Drop Cells Not Reportable 04/12/16 04:17 Ovalocytes Not Reportable 04/12/16 04:17 Helmet Cells Not Reportable 04/12/16 04:17 [place] Bodies Not Reportable 04/12/16 04:17 [place] Rings Not Reportable 04/12/16 04:17 [place] Cells Not Reportable 04/12/16 04:17 Bite Cells Not Reportable 04/12/16 04:17 Crenated Cell Not Reportable 04/12/16 04:17 Elliptocytes Not Reportable 04/12/16 04:17 Acanthocytes (Spur) Not Reportable 04/12/16 04:17 Rouleaux Not Reportable 04/12/16 04:17 Hemoglobin C Crystals Not Reportable 04/12/16 04:17 Schistocytes Not Reportable 04/12/16 04:17 Malaria parasites Not Reportable 04/12/16 04:17 Dev Bodies Not Reportable 04/12/16 04:17 Hem Pathologist Commnt No 04/12/16 04:17 Sodium 144 mmol/L (137-145) 04/12/16 04:17 Potassium 3.9 mmol/L (3.6-5.0) 04/12/16 04:17 Chloride 106.5 mmol/L (98-107) 04/12/16 04:17 Carbon Dioxide 26 mmol/L (22-30) 04/12/16 04:17 Anion Gap 15 mmol/L 04/12/16 04:17 BUN 15 mg/dL (9-20) 04/12/16 04:17 Creatinine 1.0 mg/dL (0.8-1.5) 04/12/16 04:17 Estimated GFR > 60 ml/min 04/12/16 04:17 BUN/Creatinine Ratio 15.00 % 04/12/16 04:17 Glucose 124 mg/dL (75-100) H 04/12/16 04:17 POC Glucose 151 (70-105) H 04/13/16 06:51 Hemoglobin A1c 12.2 % (4-6) H 04/11/16 14:47 Calcium 8.7 mg/dL (8.4-10.2) 04/12/16 04:17 Total Bilirubin 0.2 mg/dL (0.1-1.2) 04/12/16 04:17 AST 35 units/L (5-40) 04/12/16 04:17 ALT 71 units/L (7-56) H 04/12/16 04:17 Alkaline Phosphatase 52 units/L (35-129) 04/12/16 04:17 Total Protein 6.1 g/dL (6.3-8.2) L 04/12/16 04:17 Albumin 3.6 g/dL (3.9-5) L 04/12/16 04:17 Albumin/Globulin Ratio 1.4 % 04/12/16 04:17
--- NOTE | 2016-04-13 11:02 | Progress Note ---
Assessment and Plan 55 y.o. left handed male s/p left posterior basal ganglia infarct, gait dysfunction and dysarthria - s/p CVA- ASA, statin - gait dysfunction secondary to CVA- ongoing gait training with PT; improved distance, balance since admission - DM- IM managing - HTN- stable - DVT px- lovenox - Patient Problems (1) Left-sided cerebrovascular accident (CVA) Current Visit: Yes Status: Acute (2) Hemiparesis affecting right side as late effect of cerebrovascular accident Current Visit: Yes Status: Acute (3) Dysarthria due to cerebrovascular accident (CVA) Current Visit: Yes Status: Acute (4) HTN (hypertension) Current Visit: Yes Status: Chronic Qualifiers: Hypertension type: essential hypertension Qualified Code(s): I10 - Essential (primary) hypertension (5) Diabetes Current Visit: Yes Status: Chronic Qualifiers: Diabetes mellitus type: type 2 Diabetes mellitus complication status: with hyperglycemia Diabetes mellitus complication detail: D Diabetic retinopathy severity: D Proliferative retinopathy type: P Diabetes mellitus macular edema: D Diabetes mellitus half-way insulin use: without local intermodal truck driver use Laterality: L Chronic kidney disease stage: C Qualified Code(s): E11.65 - Type 2 diabetes mellitus with hyperglycemia (6) Abnormality of gait following cerebrovascular accident (CVA) Current Visit: Yes Status: Acute Subjective Date of service: 04/13/16 Principal diagnosis: left posterior basal ganglia infarct Interval history: Pt seen in room this AM, F/U IPR course, s/p left posterior basal ganglia infarct. No acute events overnight Objective - Constitutional Vitals: Vital Signs - 12hr 04/13/16 04/13/16 07:30 10:02 Temperature 98.4 F Pulse Rate 76 Pulse Rate [ 76 Right Brachial] Respiratory 20 Rate Blood Pressure 110/70 Blood Pressure 110/70 [Right Arm] O2 Sat by Pulse 100 Oximetry General appearance: Present: no acute distress, other (in WC in room) - EENT Eyes: EOM intact ENT: hearing intact - Neck Neck: supple, normal ROM - Respiratory Respiratory effort: normal Extremities: No edema - Integumentary Integumentary: clear - Musculoskeletal Musculoskeletal: right sided weakness - Psychiatric Psychiatric: appropriate mood/affect, intact judgment & insight, memory intact, cooperative - Allied health notes Allied health notes reviewed: nursing (Jason to supervision with ADLs) - Labs CBC & Chem 7: 04/12/16 04:17 04/12/16 04:17 Labs: Abnormal lab results 04/12/16 04/12/16 04/12/16 Range/Units 11:33 16:44 21:37 POC Glucose 234 H 188 H 295 H (70-105) 04/13/16 Range/Units 06:51 POC Glucose 151 H (70-105)
[2016-04-13] MEDS: LEVEMIR SUB-Q SCH (22:08)
[2016-04-13] MEDS: ZOCOR PO SCH (22:08)
[2016-04-14 07:48] LABS: Basophils % (Auto) 0.4 % (0.0-1.8); Eosinophils % (Auto) 2.4 % (0.0-4.3); Hematocrit 41.2 % (35.5-45.6); Hemoglobin 13.4 gm/dl (11.8-15.2); Mean Corpuscular HGB Conc 33 % (32-34); Mean Corpuscular Hemoglobin 28 pg (28-32); Mean Corpuscular Volume 87 fl (84-94); Platelet Count 222 K/mm3 (140-440); Red Blood Count 4.76 M/mm3 (3.65-5.03); Red Cell Distribution Width 13.4 % (13.2-15.2); White Blood Count 3.9 K/mm3 (4.5-11.0)
[2016-04-14 07:53] LABS: Alanine Aminotransferase 65 units/L (7-56); Albumin 3.7 g/dL (3.9-5); Albumin/Globulin Ratio 1.2 %; Alkaline Phosphatase 53 units/L (35-129); Anion Gap 17 mmol/L; Bilirubin,Total 0.3 mg/dL (0.1-1.2); Blood Urea Nitrogen 12 mg/dL (9-20); Calcium 8.8 mg/dL (8.4-10.2); Carbon Dioxide 25 mmol/L (22-30); Chloride 103.2 mmol/L (98-107); Glucose 149 mg/dL (75-100); Sodium 141 mmol/L (137-145); Total Protein 6.7 g/dL (6.3-8.2)
[2016-04-14] MEDS: NOVOLOG SUB-Q SCH ×4 (08:32→21:56)
[2016-04-14] MEDS: ASPIRIN PO SCH (08:33)
[2016-04-14] MEDS: LOVENOX SUB-Q SCH (08:33)
--- NOTE | 2016-04-14 09:41 | Progress Note ---
Assessment and Plan - Patient Problems (1) Hyperlipidemia Current Visit: Yes Status: Acute Qualifiers: Hyperlipidemia type: H Plan to address problem: Continue meds. Follow lipid panel (2) Left-sided cerebrovascular accident (CVA) Current Visit: Yes Status: Acute Plan to address problem: Continue aspirin. 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 Continue to follow Accu- Cheks. hemoglobin A1c was 12.2. Patient will remain on Levemir when discharge and metformin. Patient has been given my information to follow up with me as an outpatient. I will continue to manage his care as an outpatient. We will sign off call with any further questions. Patient will follow-up with me as an outpatient (4) HTN (hypertension) Current Visit: Yes Status: Chronic Qualifiers: Hypertension type: essential hypertension Qualified Code(s): I10 - Essential (primary) hypertension Plan to address problem: Continue blood pressure meds. Blood pressure well controlled. Will add SYED inhibitor for adequate kidney protection History Interval history: Patient sitting in wheelchair today states that he feels fine Hospitalist Physical - Constitutional Vitals: Temp Pulse Resp BP Pulse Ox 98.1 F 86 18 132/75 97 04/13/16 20:00 04/13/16 20:00 04/13/16 22:00 04/13/16 20:00 04/13/16 22:00 General appearance: Present: no acute distress, other (in WC in room) - EENT Eyes: Present: PERRL, EOM intact ENT: hearing intact, clear oral mucosa - Neck Neck: Present: supple, normal ROM - Respiratory Respiratory effort: normal Respiratory: bilateral: CTA - Cardiovascular Rhythm: regular Heart Sounds: Present: S1 & S2 - Abdominal General gastrointestinal: soft, non-tender, non-distended, normal bowel sounds - Psychiatric Psychiatric: appropriate mood/affect, intact judgment & insight - Neurologic Neurologic: CNII-XII intact Results - Labs CBC & Chem 7: 02/12/17 07:13 04/14/16 07:13 Labs: Laboratory Last Values WBC 3.9 K/mm3 (4.5-11.0) L 04/14/16 07:13 RBC 4.76 M/mm3 (3.65-5.03) 04/14/16 07:13 Hgb 13.4 gm/dl (11.8-15.2) 04/14/16 07:13 Hct 41.2 % (35.5-45.6) 04/14/16 07:13 MCV 87 fl (84-94) 04/14/16 07:13 MCH 28 pg (28-32) 04/14/16 07:13 MCHC 33 % (32-34) 04/14/16 07:13 RDW 13.4 % (13.2-15.2) 04/14/16 07:13 Plt Count 222 K/mm3 (140-440) 04/14/16 07:13 Lymph % (Auto) 34.1 % (13.4-35.0) 04/14/16 07:13 [place] % (Auto) 10.0 % (0.0-7.3) H 04/14/16 07:13 Eos % (Auto) 2.4 % (0.0-4.3) 04/14/16 07:13 Baso % (Auto) 0.4 % (0.0-1.8) 04/14/16 07:13 Lymph # 1.3 K/mm3 (1.2-5.4) 04/14/16 07:13 [place] # 0.4 K/mm3 (0.0-0.8) 04/14/16 07:13 Eos # 0.1 K/mm3 (0.0-0.4) 04/14/16 07:13 Baso # 0.0 K/mm3 (0.0-0.1) 04/14/16 07:13 Add Manual Diff Complete 04/12/16 04:17 Total Counted 100 04/12/16 04:17 Seg Neutrophils % 53.1 % (40.0-70.0) 04/14/16 07:13 Seg Neuts % (Manual) 35.0 % (40.0-70.0) L 04/12/16 04:17 Band Neutrophils % 0 % 04/12/16 04:17 Lymphocytes % (Manual) 50.0 % (13.4-35.0) H 04/12/16 04:17 Reactive Lymphs % (Man) 0 % 04/12/16 04:17 Monocytes % (Manual) 12.0 % (0.0-7.3) H 04/12/16 04:17 Eosinophils % (Manual) 3.0 % (0.0-4.3) 04/12/16 04:17 Basophils % (Manual) 0 % (0.0-1.8) 04/12/16 04:17 Metamyelocytes % 0 % 04/12/16 04:17 Myelocytes % 0 % 04/12/16 04:17 Promyelocytes % 0 % 04/12/16 04:17 Blast Cells % 0 % 04/12/16 04:17 Nucleated RBC % Not Reportable 04/12/16 04:17 Seg Neutrophils # 2.1 K/mm3 (1.8-7.7) 04/14/16 07:13 Seg Neutrophils # Man 1.5 K/mm3 (1.8-7.7) L 04/12/16 04:17 Band Neutrophils # 0.0 K/mm3 04/12/16 04:17 Lymphocytes # (Manual) 2.1 K/mm3 (1.2-5.4) 04/12/16 04:17 Abs React Lymphs (Man) 0.0 K/mm3 04/12/16 04:17 Monocytes # (Manual) 0.5 K/mm3 (0.0-0.8) 04/12/16 04:17 Eosinophils # (Manual) 0.1 K/mm3 (0.0-0.4) 04/12/16 04:17 Basophils # (Manual) 0.0 K/mm3 (0.0-0.1) 04/12/16 04:17 Metamyelocytes # 0.0 K/mm3 04/12/16 04:17 Myelocytes # 0.0 K/mm3 04/12/16 04:17 Promyelocytes # 0.0 K/mm3 04/12/16 04:17 Blast Cells # 0.0 K/mm3 04/12/16 04:17 WBC Morphology Not Reportable 04/12/16 04:17 Hypersegmented Neuts Not Reportable 04/12/16 04:17 Hyposegmented Neuts Not Reportable 04/12/16 04:17 Hypogranular Neuts Not Reportable 04/12/16 04:17 Smudge Cells Not Reportable 04/12/16 04:17 Toxic Granulation Not Reportable 04/12/16 04:17 Toxic Vacuolation Not Reportable 04/12/16 04:17 Dohle Bodies Not Reportable 04/12/16 04:17 Pelger-[place]uet Anomaly Not Reportable 04/12/16 04:17 Rosio Rods Not Reportable 04/12/16 04:17 Platelet Estimate Consistent w auto 04/12/16 04:17 Clumped Platelets Not Reportable 04/12/16 04:17 Plt Clumps, EDTA Not Reportable 04/12/16 04:17 Large Platelets Not Reportable 04/12/16 04:17 Giant Platelets Not Reportable 04/12/16 04:17 Platelet Satelliting Not Reportable 04/12/16 04:17 Plt Morphology Comment Not Reportable 04/12/16 04:17 RBC Morphology Normal 04/12/16 04:17 Dimorphic RBCs Not Reportable 04/12/16 04:17 Polychromasia Not Reportable 04/12/16 04:17 Hypochromasia Not Reportable 04/12/16 04:17 Poikilocytosis Not Reportable 04/12/16 04:17 Anisocytosis Not Reportable 04/12/16 04:17 Microcytosis Not Reportable 04/12/16 04:17 Macrocytosis Not Reportable 04/12/16 04:17 Spherocytes Not Reportable 04/12/16 04:17 Pappenheimer Bodies Not Reportable 04/12/16 04:17 Sickle Cells Not Reportable 04/12/16 04:17 Target Cells Not Reportable 04/12/16 04:17 Tear Drop Cells Not Reportable 04/12/16 04:17 Ovalocytes Not Reportable 04/12/16 04:17 Helmet Cells Not Reportable 04/12/16 04:17 [place] Bodies Not Reportable 04/12/16 04:17 [place] Rings Not Reportable 04/12/16 04:17 [place] Cells Not Reportable 04/12/16 04:17 Bite Cells Not Reportable 04/12/16 04:17 Crenated Cell Not Reportable 04/12/16 04:17 Elliptocytes Not Reportable 04/12/16 04:17 Acanthocytes (Spur) Not Reportable 04/12/16 04:17 Rouleaux Not Reportable 04/12/16 04:17 Hemoglobin C Crystals Not Reportable 04/12/16 04:17 Schistocytes Not Reportable 04/12/16 04:17 Malaria parasites Not Reportable 04/12/16 04:17 Dev Bodies Not Reportable 04/12/16 04:17 Hem Pathologist Commnt No 04/12/16 04:17 Sodium 141 mmol/L (137-145) 04/14/16 07:13 Potassium 4.0 mmol/L (3.6-5.0) 04/14/16 07:13 Chloride 103.2 mmol/L (98-107) 04/14/16 07:13 Carbon Dioxide 25 mmol/L (22-30) 04/14/16 07:13 Anion Gap 17 mmol/L 04/14/16 07:13 BUN 12 mg/dL (9-20) 04/14/16 07:13 Creatinine 1.0 mg/dL (0.8-1.5) 04/14/16 07:13 Estimated GFR > 60 ml/min 04/14/16 07:13 BUN/Creatinine Ratio 12.00 % 04/14/16 07:13 Glucose 149 mg/dL (75-100) H 04/14/16 07:13 POC Glucose 236 (70-105) H 04/13/16 21:14 Hemoglobin A1c 12.2 % (4-6) H 04/11/16 14:47 Calcium 8.8 mg/dL (8.4-10.2) 04/14/16 07:13 Total Bilirubin 0.3 mg/dL (0.1-1.2) 04/14/16 07:13 AST 31 units/L (5-40) 04/14/16 07:13 ALT 65 units/L (7-56) H 04/14/16 07:13 Alkaline Phosphatase 53 units/L (35-129) 04/14/16 07:13 Total Protein 6.7 g/dL (6.3-8.2) 04/14/16 07:13 Albumin 3.7 g/dL (3.9-5) L 04/14/16 07:13 Albumin/Globulin Ratio 1.2 % 04/14/16 07:13
[2016-04-14] MEDS: NORVASC PO SCH (10:08)
[2016-04-14] MEDS: ZESTRIL PO SCH (13:02)
[2016-04-14] MEDS: LEVEMIR SUB-Q SCH (21:55)
[2016-04-14] MEDS: ZOCOR PO SCH (21:55)
[2016-04-15] MEDS: NOVOLOG SUB-Q SCH ×4 (08:11→21:54)
[2016-04-15] MEDS: ASPIRIN PO SCH (09:08)
[2016-04-15] MEDS: NORVASC PO SCH (09:09)
[2016-04-15] MEDS: ZESTRIL PO SCH (09:09)
[2016-04-15] MEDS: LOVENOX SUB-Q SCH (09:09)
--- NOTE | 2016-04-15 17:01 | Progress Note ---
Assessment and Plan 55 y.o. left handed male s/p left posterior basal ganglia infarct, gait dysfunction and dysarthria - s/p CVA- ASA, statin - gait dysfunction secondary to CVA- ambulating with straight cane - DM- IM managing; fair control; will need ongoing management by PCP - HTN- stable - DVT px- lovenox - family training completed on today; tentative d/c home on tomorrow - Patient Problems (1) Left-sided cerebrovascular accident (CVA) Current Visit: Yes Status: Acute (2) Hemiparesis affecting right side as late effect of cerebrovascular accident Current Visit: Yes Status: Acute (3) Dysarthria due to cerebrovascular accident (CVA) Current Visit: Yes Status: Acute (4) HTN (hypertension) Current Visit: Yes Status: Chronic Qualifiers: Hypertension type: essential hypertension Qualified Code(s): I10 - Essential (primary) hypertension (5) Diabetes Current Visit: Yes Status: Chronic Qualifiers: Diabetes mellitus type: type 2 Diabetes mellitus complication status: with hyperglycemia Diabetes mellitus complication detail: D Diabetic retinopathy severity: D Proliferative retinopathy type: P Diabetes mellitus macular edema: D Diabetes mellitus [facility] insulin use: without [facility] use Laterality: L Chronic kidney disease stage: C Qualified Code(s): E11.65 - Type 2 diabetes mellitus with hyperglycemia (6) Abnormality of gait following cerebrovascular accident (CVA) Current Visit: Yes Status: Acute Subjective Date of service: 04/15/16 Principal diagnosis: left posterior basal ganglia infarct Interval history: Pt seen in OT gym this AM, F/U IPR course, s/p left posterior basal ganglia infarct. Family present for family training; no new complaints Objective - Constitutional Vitals: Vital Signs - 12hr 04/15/16 04/15/16 07:30 09:09 Temperature 98.1 F Pulse Rate 73 Pulse Rate [ 73 Right Brachial] Respiratory 20 Rate Blood Pressure 133/76 Blood Pressure 133/76 [Right Arm] O2 Sat by Pulse 96 Oximetry General appearance: Present: no acute distress - EENT Eyes: EOM intact ENT: hearing intact - Neck Neck: supple, normal ROM - Respiratory Respiratory effort: normal Respiratory: bilateral: CTA - Cardiovascular Rhythm: regular Heart Sounds: Present: S1 & S2 Extremities: No edema - Gastrointestinal General gastrointestinal: Present: soft, non-tender, non-distended, normal bowel sounds - Integumentary Integumentary: clear - Musculoskeletal Musculoskeletal: right sided weakness - Psychiatric Psychiatric: appropriate mood/affect, intact judgment & insight, memory intact, cooperative - Allied health notes Allied health notes reviewed: PT (Jason for transfers; supervision for gait with [place]) - Labs CBC & Chem 7: 04/14/16 07:13 04/14/16 07:13 Labs: Abnormal lab results 04/14/16 04/14/16 04/15/16 Range/Units 16:48 21:05 06:18 POC Glucose 242 H 266 H 127 H (70-105) 04/15/16 Range/Units 12:12 POC Glucose 216 H (70-105)
[2016-04-15] MEDS: ZOCOR PO SCH (21:54)
[2016-04-15] MEDS: LEVEMIR SUB-Q SCH (21:54)
[2016-04-16] MEDS: ZESTRIL PO SCH (09:49)
[2016-04-16] MEDS: ASPIRIN PO SCH (09:50)
[2016-04-16] MEDS: LOVENOX SUB-Q SCH (09:50)
[2016-04-16] MEDS: NORVASC PO SCH (09:50)
[2016-04-16] MEDS: NOVOLOG SUB-Q SCH ×2 (09:50→12:24)
--- NOTE | 2016-04-16 11:33 | Discharge Summary ---
Providers - Providers Date of Admission: 04/02/16 13:35 Date of discharge: 04/16/16 Attending physician: GERI PEREZ 04/02/16 15:45 Occupational Therapy Evaluate and Treat [CONS] Routine Comment: Reason For Exam: s/p CVA Physical Therapy Evaluation and Treat [CONS] Routine Comment: Reason For Exam: s/p CVA Speech Therapy Evaluation and Treat [CONS] Routine Reason For Exam: s/p CVA 04/05/16 13:41 Consult to Physician [CONS] Routine Consulting Provider: [facility] Reason For Exam: DM management Place consult to:: Dr Saldivar Notified:: yes Phone number called:: [phone] Primary care physician: Dr. Gordon Meza Hospitalization Reason for admission: Left posterior Basal Ganglia CVA Condition: Stable Hospital course: 55 y.o. left handed male who presented with acute onset of right sided weakness ; CVA work-up revealed acute ischemia at left posterior basal ganglia. Pt continued with right sided weakness, dysarthria and facial droop during acute care course; functional decline in self cares and mobility noted when evaluated by PT/OT. Therefore, pt was admitted for aggressive therapies and ongoing medical management. Pt tolerated IRU course; IM consulted for better DM management. On admission, pt required S/U to modA for ADLs, SBA/Supervision for bed mobility, Pawan/CGA for transfers and gait, ambulating 82 feet with HW. At the time of discharge, pt has progressed to Jason for bed mobility, transfers and gait, ambulating 400 feet with straight cane; Jason to supervision for ADLs; improved articulation and good use of compensatory strategies. Pt has completed family training and is stable for d/c home. >30mins spent on d/c process; medication reconciliation; education on need to maintain log of blood sugars; glucometer prescription provided Disposition: DISCHARGED TO HOME OR SELFCARE - Discharge Diagnoses (1) Left-sided cerebrovascular accident (CVA) Status: Acute (2) Hemiparesis affecting right side as late effect of cerebrovascular accident Status: Acute (3) Dysarthria due to cerebrovascular accident (CVA) Status: Acute (4) HTN (hypertension) Status: Chronic Qualifiers: Hypertension type: essential hypertension Qualified Code(s): I10 - Essential (primary) hypertension (5) Diabetes Status: Chronic Qualifiers: Diabetes mellitus type: type 2 Diabetes mellitus complication status: with hyperglycemia Diabetes mellitus complication detail: D Diabetic retinopathy severity: D Proliferative retinopathy type: P Diabetes mellitus macular edema: D Diabetes mellitus half-way insulin use: with half-way use Laterality: L Chronic kidney disease stage: C Qualified Code(s): E11.65 - Type 2 diabetes mellitus with hyperglycemia; 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 (6) Abnormality of gait following cerebrovascular accident (CVA) Status: Acute Core Measure Documentation - Palliative Care Palliative Care/ Comfort Measures: Not Applicable - Core Measures Any of the following diagnoses?: stroke - Stroke Discharge Requirements Statin for LDL = or >70 mg/dl on DC: Yes Anticoag for atrial fib/atrial flutter: Not Applicable Antithrombotic for ischemic stroke: Yes Exam - Constitutional Vitals: Temp Pulse Resp BP Pulse Ox 98.1 F 90 18 136/77 97 04/15/16 20:00 04/16/16 09:50 04/15/16 22:00 04/16/16 09:50 04/15/16 22:00 General appearance: Present: no acute distress - EENT Eyes: Present: EOM intact ENT: hearing intact - Neck Neck: Present: supple, normal ROM - Respiratory Respiratory effort: normal - Extremities Extremities: No edema - Abdominal General gastrointestinal: Present: soft, non-tender, non-distended - Integumentary Integumentary: Present: clear - Musculoskeletal Musculoskeletal: right sided weakness - Psychiatric Psychiatric: appropriate mood/affect, intact judgment & insight, memory intact, cooperative - Neurologic Neurologic: other (stable facial droop and dysarthria) Plan Activity: no driving until cleared by PCP, fall precautions Weight Bearing Status: Weight Bear as Tolerated Diet: low fat, low cholesterol, diabetic Special Instructions: physical therapy, occupational therapy, other ([employer]; outpatient therapies at [facility]) Durable Medical Equipment Needed Upon Discharge: Cane (straight cane), Bedside Commode, other ([facility]) Additional Instructions: Neuroloogy, Dr. Vinicio Tillman, 1-2 weeks Follow up with: GORDON MEZA MD [Staff Physician] - 7 Days Prescriptions: Insulin Detemir [Levemir] 20 units SUB-Q QHS 30 Days Simvastatin [Zocor TAB] 20 mg PO QHS #30 tablet amLODIPine [Norvasc] 10 mg PO DAILY #30 tablet Aspirin [Aspirin TAB] 325 mg PO QDAY #30 tablet Lisinopril [Zestril TAB] 5 mg PO QDAY #30 tablet
[2016-04-16 13:20] VITALS: BP 136/77
== END 2016-04-16 13:45 | disposition home or self-care (01) | DRG 65 ==
LOC: 3B 13:35
PROVIDERS: ADMIT Family Medicine; ATTEND Family Medicine
DX: I63.9 Cerebral infarction, unspecified (principal); G81.91 Hemiplegia, unspecified affecting right dominant side; R47.1 Dysarthria and anarthria; R29.810 Facial weakness; I10 Essential (primary) hypertension; E11.65 Type 2 diabetes mellitus with hyperglycemia; R26.9 Unspecified abnormalities of gait and mobility; E78.5 Hyperlipidemia, unspecified; Z60.2 Problems related to living alone; Z98.890 Other specified postprocedural states; Z79.82 Long term (current) use of aspirin; Z79.4 Long term (current) use of insulin; Z79.899 Other long term (current) drug therapy; Z79.84 Long term (current) use of oral hypoglycemic drugs; Z83.3 Family history of diabetes mellitus; Z82.49 Family history of ischemic heart disease and other diseases of the circulatory system; Z82.3 Family history of stroke
CPT/HCPCS: 36415; 80053; 82962; 83036; 85007; 85025; J1650; J1815; J1818